=== PATIENT | male | born 1975 | race Caucasian/White ===

== ENCOUNTER 2025-01-02 10:38 | Emergency (ER) | payer OTHER, SELFPAY ==
[2025-01-02 10:52] VITALS: BP 144/81; PULSE 88; RESP 16; TEMP 36.2; O2SAT 100
--- NOTE | 2025-01-02 11:28 | ED.EAR ---
HPI - Ear Problem General Chief complaint: Ear Stated complaint: bilateral ear discomfort Time Seen by Provider: 01/02/25 11:05 Source: patient and RN notes reviewed Mode of arrival: ambulatory Limitations: no limitations History of Present Illness HPI Narrative: Mnaac-wdut-mkvc-old male presents Express Care complaining of bilateral ear pain and itchiness for 3 weeks. Patient reports noticing watery discharge. Patient denies any water in his ear putting his head under water, or any recent swimming. Patient says is ears feel very itchy patient's using Q-tips to help relieve symptoms. Patient says his ears feel more itchy than being painful and states the left is worse than right. Patient denies any fevers, upper respiratory symptoms, dizziness, or any other symptoms. Patient denies any significant past medical history. Related Data Home Medications ?Medication ?Instructions ?Recorded ?Confirmed ?Last Taken ?Type lisinopril 5 mg tablet mg 01/02/25 Unknown History Allergies Allergy/AdvReac Type Severity Reaction Status Date / Time No Known Allergies Allergy Verified 01/02/25 10:53 Review of Systems Review of Systems: CONSTITUTIONAL: Denies fever, chills, or sweats. EYES: Denies visual changes, blurry vision, redness, or discharge. ENT: Denies rhinorrhea, congestion, sore throat. Positive for otalgia, itchiness and dry ears. CARDIOVASCULAR: Denies chest pain, palpitations, dizziness, or edema. RESPIRATORY: Denies cough or dyspnea. GASTROINTESTINAL: Denies abdominal pain, nausea, vomiting, or diarrhea. GENITOURINARY: Denies dysuria or hematuria. SKIN: Denies rash or itching. MUSCULOSKELETAL: Denies back pain, joint pain, or myalgia. NEUROLOGIC: Denies headache, numbness, or weakness. PSYCHIATRIC: Denies anxiety or depression. All other systems reviewed are negative, except as documented in HPI. PMFSH Comments At the time of my signature, I reviewed and agree with the nursing past medical, surgical, social, and family history. There is no relevant family history pertinent to the patient complaint. Exam Narrative: GENERAL: This is a well-nourished, well-developed adult, in no apparent distress. They are non ill-appearing, nontoxic appearing. HEAD: normocephalic, atraumatic. EYES: Sclera clear/white. Conjunctiva normal. Vision is grossly intact. Extraocular movements intact. Pupils PERRLA. No nystagmus EARS: External ears normal, no tragal tenderness, auditory canals appear excoriated, dry, scaly. No spores or exudate present. No redness or swelling. TMs pearly lake with good cone of light, no erythema or swelling, no suppuration. Hearing grossly intact. NOSE: External nose normal with no obvious nasal discharge, nasal turbinates without redness, no rhinorrhea. THROAT: Mucous membranes moist, posterior pharynx clear, without erythema or swelling. Uvula midline. NECK: Neck supple, non-tender without lymphadenopathy, masses or thyromegaly. CARDIOVASCULAR: Regular rate and rhythm without murmurs, gallops, or rubs. RESPIRATORY: Clear to auscultation. Breath sounds equal bilaterally. No wheezes, rales, or rhonchi. SKIN: warm, Dry, intact with no suspicious lesions or rash, good texture and turgor. NEURO: awake, alert, and oriented to person, place and time. There were no obvious focal neurologic abnormalities. EXTREMITIES: No joint tenderness, effusion, or edema noted. BACK: Nontender without deformity. No CVA tenderness. Course Course Emergency Course: Portions of this record may have been created with voice recognition software Level of Care: Express Care Visit Vital Signs Vital signs: Vital Signs Temperature 97.1 F L 01/02/25 10:52 Pulse Rate 88 01/02/25 10:52 Respiratory Rate 16 01/02/25 10:52 Blood Pressure 144/81 H 01/02/25 10:52 Pulse Oximetry 100 01/02/25 10:52 Oxygen Delivery Room Air 01/02/25 10:52 Temperature 97.1 F L 01/02/25 10:52 Pulse Rate 88 01/02/25 10:52 Respiratory Rate 16 01/02/25 10:52 Blood Pressure 144/81 H 01/02/25 10:52 Pulse Oximetry 100 01/02/25 10:52 Oxygen Delivery Room Air 01/02/25 10:52 Reviewed Medical Decision Making MDM Narrative Medical decision making narrative: Ear canals appear dry and excoriated. Patient has no history of eczema. No obvious mold spores present and patient's auditory canals. No evidence of bacterial infection. External ears without lesions or rash. No other skin lesions or rash throughout the rest of the patient's body. Will cover for eczema and possible fungal infection given length of symptoms. Will treat with fluocinolone drops and acetic acid drops. Discussed physical exam findings. Advised supportive measures and signs/symptoms to go to the ER. Pt is appropriate for outpt treatment and f/u. Differential Diagnosis Differential Diagnosis: Otitis externa, otitis media, otitis mycosis, atopic dermatitis, seborrheic dermatitis Vital Signs Vital Signs: Vital Signs Temperature 97.1 F L 01/02/25 10:52 Pulse Rate 88 01/02/25 10:52 Respiratory Rate 16 01/02/25 10:52 Blood Pressure 144/81 H 01/02/25 10:52 Pulse Oximetry 100 01/02/25 10:52 Oxygen Delivery Room Air 01/02/25 10:52 Temperature 97.1 F L 01/02/25 10:52 Pulse Rate 88 01/02/25 10:52 Respiratory Rate 16 01/02/25 10:52 Blood Pressure 144/81 H 01/02/25 10:52 Pulse Oximetry 100 01/02/25 10:52 Oxygen Delivery Room Air 01/02/25 10:52 Critical Care Time Critical Care Time Critical Care Time: No Discharge Plan Discharge Clinical Impression: Dryness of both ear canals Patient Disposition: Home Condition: Stable Instructions: Fluocinolone Acetonide (Into the ear) Additional Instructions: Used ear drops as directed. Please follow-up with PCP in 3-5 days. Avoid using hydrogen peroxide or placing Q-tips in your ears. Avoid getting water in your ear. If you developed redness, swelling, discharge fevers or any other concerns please go to the ER. Patient Language: [place] Island[place] Prescriptions: New fluocinolone acetonide oil 0.01 % drops 5 drp EACH EAR BID 7 Days Qty: 20 0RF acetic acid 2 % solution 5 drp EACH EAR Q6H 5 Days Qty: 15 0RF No Action lisinopril 5 mg tablet Follow-up/Referrals: Priti,ÁLVARO Miller Jr. [Primary Care Provider] - Time of Disposition: 11:18
--- OUTSIDE RECORDS SUMMARY | 2025-01-02 11:35 | XMS_ITS | Clinical Summary ---
Author Organization [address] Address [address] [phone] Care Team Providers Care Visual Lead Name Role Phone ÁLVARO Marcos Jr., Paul Villegas Primary Care Provide r Allergies No known active allergies Medications lisinopriL (PRINIVIL,ZESTRI L) 5 mg tabletIndication s:Essential hypertension TAKE 1 TABLET (5 MG TOTAL) BY MOUTH DAILY. 100 tablet 5 Active sildenafiL (VIAGRA) 50 mg tabletIndication s:ED (erectile dysfunction) of non-organic origin TAKE 1 TABLET BY MOUTH EVERY DAY 8 tablet [address] (PROTONIX) 40 mg EC tabletIndication s:Gastroesophage al reflux disease without esophagitis TAKE 1 TABLET BY MOUTH EVERY DAY 90 tablet [address] (PROTONIX) 40 mg EC tabletIndication s:Gastroesophage al reflux disease without esophagitis Take 1 tablet (40 mg total) by mouth daily 90 tablet 1 4 025 Discontinued Hospital, Clinic, or Other Facility Administered Medication Ordered Dose Route Frequency Start Date End Date Status lidocaine (XYLOCAINE) 20 mg/mL (2 %) injection 10 mgIndications:Administratio n of Local Anesthesia 10 mg OTHER Once 12/09/2024 12/09/2024 End ed methylPREDNISolone acetate (DEPO-medrol) injection 80 mgIndications:Trigger thumb of right hand 80 mg OTHER Once 12/09/2024 12/09/2024 Ended Active Problems Problem Noted Date Diagnosed Date Trigger thumb of right hand 12/09/2024 Assessment & Plan (12/09/2024 9:55 AM CDT): Orders: lidocaine (XYLOCAINE) 20 mg/mL (2 %) injection 10 mg methylPREDNISolone acetate (DEPO-medrol) injection 80 mg History of colon polyps 12/14/2023 Gastroesophageal reflux disease 12/14/2023 Positive colorectal cancer screening using Colog uard test 01/20/2023 Essential hypertension 04/25/2021 Vitamin D deficiency 08/02/2017 Encounters Date Type Department Care Team Description 12/09/2024 9:15 AM CDT Office Visit [facility] Medicine and Primary Care at [address] [phone] Chan Castorena DO Trigger thumb of right hand (Primary Dx) 11/25/2024 1:05 PM CDT Ancillary Procedure [facility] at [address] [phone] Arthritis of carpometacarpal (CMC) joint of right thumb 11/25/2024 1:00 PM CDT Office Visit [facility] Primary Care at [address] [phone] Chan Castorena DO Arthritis of carpometacarpal (CMC) joint of right thumb (Primary Dx); Trigger thumb of right hand 11/08/2024 8:30 AM CDT Office Visit [facility] and Primary Care at [address] [phone] Chan Castorena DO Arthritis of carpometacarpal (CMC) joint of right thumb (Primary Dx); Tendinitis of left triceps 10/11/2024 3:30 PM CDT Office Visit [facility] at [address] [phone] Saumya Hooper NP Left elbow pain (Primary Dx) 10/11/2024 3:20 PM CDT Ancillary Procedure [facility] Imaging at [address] [phone] Left elbow pain 10/11/2024 Results Follow-Up [facility] at [address] [phone] Saumya Hooper NP XR Elbow Left 3+ Vw from Last 3 Months Immunizations Immunization Administration Dates Next Due COVID-19 MRNA (MODERNA) .5 M L (50 MCG) VACCINE (12 YEARS AND UP) 04/20/2023 Influenza, Quadrivalent, Eloise l Culture-based MDCK, Preservative Free, Antibiotic Free, Intramuscular 05/03/2022 Influenza, Quadrivalent, Spl it, Preservative Free, Intramuscular 04/26/2021,04/27/2020,05/21/2019 Influenza, Trivalent, Cell C ulture-based MDCK, Preservative Free, Antibiotic Free, Intramuscular 04/18/2024 Influenza, Unspecified 05/10/2023 Moderna SARS-CoV-2 Monovalen t Vaccination (12+ YRS) 06/07/2021 Surgical History Surgery Date Site/Laterality Comments FOOT SURGERY 07/24/1978 - 07/23/1979 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 COLONOSCOPY UPPER GASTROINTESTINAL ENDOSCOPY Medical History Medical History Date Comments Hypertension GERD (gastroesophageal reflux disease) Colon polyp Family History Medical History Relation Name Comments No Known Problems Brother Heart disease Father Hypertension Father Alzheimer's disease Maternal Grandfather No Known Problems Mother No Known Problems Sister Relation Name Status Comments Brother Alive Father Alive Maternal Grandfather Maternal Grandmother Mother Alive Paternal Grandfather Paternal Grandmother Sister Alive Social History Tobacco Use Types Packs/Day Years Used Date Smoking Tobacco: Never Smokeless Tobacco: Never Tobacco Cessation:Counseling Given: Not Answered AUDIT-C Answer Date Recorded Q1: How often do you have a drink containing alc ohol? 2-3 times a week 06/14/2024 Q2: How many drinks containi ng alcohol do you have on a typical day when you are drinking? 1 or 2 06/14/2024 Q3: How often do you have si x or more drinks on one occasion? Weekly 06/14/2024 PHQ-2 Answer Date Recorded PHQ-2 Total Score (If total score is 3 or more points, staff should administer the PHQ-9) 0 06/14/2024 Personal Safety Answer Date Recorded Have you ever been in or are you currently in a harmful physical or emotional relationship or is someone making you feel afraid or unsafe? 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 TECH Gender Identity Not on file Sexual Orientation Not on file Obstetrics History Last Filed Vital Signs Vital Sign Reading Time Taken Comments Blood Pressure 145/86 12/09/2024 9:04 AM CDT Pulse 76 12/09/2024 9:04 AM CDT Temperature 36.9 C (98.4 F) 10/11/2024 3:10 PM CDT Respiratory Rate 18 12/09/2024 9:04 AM CDT Oxygen Saturation 99% 10/11/2024 3:10 PM CDT Inhaled Oxygen Concentration - - Weight 78.5 kg (173 lb) 12/09/2024 9:04 AM CDT Height 167.6 cm (5' 6) 12/09/2024 9:04 AM CDT Body Mass Index 27.92 12/09/2024 9:04 AM CDT Plan of Treatment Health Maintenance Due Date Last Done Comments DTaP/Tdap/Td Vaccine (1 - Tdap) 12/22/1986 Hepatitis B Screening 12/22/1993 Colon Cancer Screening-Colonoscopy 02/28/2025 02/29/2024, 03/13/2023 Depression Screening 06/14/2025 06/14/2024, 05/15/2023, 05/13/2022, Additional history exists Regular Well Visit/Exam 18-64 06/14/2025 06/14/2024, 05/15/2023, 05/15/2023, Additional history exists Covid-19 Vaccine Completed 04/18/2024, , 05/11/2022, Additional history exists Influenza Vaccine Completed 04/18/2024, , 05/03/2022, Additional history exists Hepatitis C Screening Completed 06/17/2024 Pneumococcal vaccine <65 Aged Out No longer eligible based on patient's age to complete this topic Procedures Procedure Name Priority Date/Time Associated Diagnosis Comments XR HAND RIGHT 3 OR MORE VIEWS Routine 11/25/2024 1:01 PM CDT Arthritis of carpometacarpal (CMC) joint of right thumb XR ELBOW LEFT 3 OR MORE VIEWS Schedule MILE, Read MILE (Appt Today, Awaiting Results) 10/11/2024 3:19 PM CDT Left elbow pain HEPATITIS C ANTIBODY Routine 06/17/2024 8:33 AM PATIENT SAFETY TECH Annual physical exam Encounter for hepatitis C screening test for low risk patient COLONOSCOPY 02/29/2024 7:24 AM CDT from Last 3 Months or Most Recently Relevant to Health Maintenance Results * XR Hand Right 3 or More Views (11/25/2024 1:01 PM CDT) Anatomical Region Laterality Modality Upper Extremities, Hand Right Digital Radiography 11/25/2024 9:46 PM CDT Narrative 11/25/2024 9:50 PM CDT EXAM DESCRIPTION: XR HAND RIGHT 3 OR MORE VIEWS REASON FOR STUDY: Right Hand Thumb Pain Pt complains of CMC pain for many months. No known injury or prior surgery. Prior thumb fracture many years ago TECHNIQUE: 3 radiographic view(s) of the right hand . COMPARISON: None FINDINGS: BONES/JOINTS: There is no acute fracture, malalignment or osseous abnormality. Moderate degenerative change of the 1st carpometacarpal interface. SOFT TISSUES: Within normal limits. IMPRESSION: Moderate degenerative change of the 1st carpometacarpal interface. THIS IS AN ELECTRONICALLY VERIFIED FINAL REPORT 11/25/2024 9:50 PM - Electronically signed by Otis Ness M.D. RW T: Report ID: [id number] Reading Location: [id number] Procedure Note Otis Ness MD - 11/25/2024 EXAM DESCRIPTION: XR HAND RIGHT 3 OR MORE VIEWS REASON FOR STUDY: Right Hand Thumb Pain Pt complains of CMC pain for many months. No known injury or priorsurgery. Prior thumb fracture many years ago TECHNIQUE: 3 radiographic view(s) of the right hand . COMPARISON: None FINDINGS: BONES/JOINTS: There is no acute fracture, malalignment orosseous abnormality. Moderate degenerative change of the 1st carpometacarpalinterface. SOFT TISSUES: Within normal limits. IMPRESSION: Moderate degenerative change of the 1st carpometacarpal interface. THIS IS AN ELECTRONICALLY VERIFIED FINAL REPORT 11/25/2024 9:50 PM - Electronically signed by Otis ZHONG T: Report ID: [id number] Reading Location: [id number] Chan Miller Raffaele DO IMG XR PROCEDURES Venessa l Result * XR Elbow Left 3+ Vw (10/11/2024 3:19 PM CDT) Anatomical Region Laterality Modality Upper Extremities, Elbow Left Digital Radiography 10/11/2024 4:58 PM CDT Narrative 10/11/2024 5:05 PM CDT EXAM DESCRIPTION: XR ELBOW LEFT 3 OR MORE VIEWS REASON FOR STUDY: pain Posterior elbow pain after popping while working out yesterday. No prior surgery to the elbow. TECHNIQUE: There are 3 radiographic view(s) of the left elbow . COMPARISON: No prior FINDINGS: Normal mineralization. No fracture or dislocation. Joint spaces are intact. Well corticated ossifications are seen along the medial malleolus indicative of heterotopic ossification. These are well corticated with no suggestion of fracture. Mild osteoarthritis proximal radioulnar joint. Enthesophyte formation and heterotopic ossification distal triceps. IMPRESSION: No acute osseous abnormality. THIS IS AN ELECTRONICALLY VERIFIED FINAL REPORT 10/11/2024 5:05 PM - Electronically signed by Chan LIU T: Report ID: [id number] Reading Location: [id number] Procedure Note Chan Bella MD - 10/11/2024 EXAM DESCRIPTION: XR ELBOW LEFT 3 OR MORE VIEWS REASON FOR STUDY: pain Posterior elbow pain after popping while working out yesterday. No prior surgery to the elbow. TECHNIQUE: There are 3 radiographic view(s) of the left elbow . COMPARISON: No prior FINDINGS: Normal mineralization. No fracture or dislocation. Jointspaces are intact. Well corticated ossifications are seen along the medialmalleolus indicative of heterotopic ossification. These are well corticated with no suggestion of fracture. Mild osteoarthritis proximal radioulnar joint. Enthesophyte formation and heterotopic ossification distal triceps. IMPRESSION: No acute osseous abnormality. THIS IS AN ELECTRONICALLY VERIFIED FINAL REPORT 10/11/2024 5:05 PM - Electronically signed by Chan Bella M.D. MJ T: Report ID: [id number] Reading Location: [place] [id number] Saumya Hooper FIELD SERVICE POULTRY TECHNICIAN IMG XR PROCEDURES Final Result * Hepatitis C antibody Blood (06/17/2024 8:33 AM PATIENT SAFETY TECH) Hep C Ab Nonreactive Nonreactive Comment: Antibodies to HCV not detected. Does NOT exclude the possibility of recent exposure to HCV. Current interpretive data was last revised on 22 Interpretive Data Nonreactive: Antibodies to HCV not detected. Does NOT exclude the possibility of recent exposure to HCV. Equivocal: Equivocal for HCV antibodies. Supplemental molecular testing will be automatically performed to determine infection status in accordance with current CDC screening recommendations. Reactive: Positive for HCV antibodies. This may represent current or past HCV infection. Supplemental molecular testing will be automatically performed to determine current infection status in accordance with current CDC screening recommendations. Interpretive data was last revised on 2019. Blood 06/17/2024 8:33 AM PATIENT SAFETY TECH 06/17/2024 2:27 PM PATIENT SAFETY TECH ÁLVARO Atkinson Jr. LAB MICROBIOLOGY - Melinta NERAL ORDERABLES Final Result [id number] [facility] Department of [employer] [address] * Colonoscopy (02/29/2024 7:24 AM CDT) Anatomical Region Laterality Modality Other Narrative Procedure Note Paul Wilson DO - 02/29/2024 7:24 AM CDT [facility] Patient Name: Artemio Rodriguez Procedure Date: 02/29/2024 7:24 AM Date of : 1975 Admit Type: Outpatient Age: 48 Gender: Male Attending MD: Paul Wilson D.O. Room: [facility] ENDOSCOPY ROOM 05 Note Status: Finalized Procedure: Colonoscopy Indications: Personal history of colonic polyps Referring MD: Paul Wilson D.O. Providers: Paul Wilson D.O. Medicines: See the Anesthesia note for documentation of the administered medications Complications: No immediate complications. Estimated Blood Loss: Estimated blood loss was minimal. Procedure: The benefits, risks and alternatives of theprocedure and sedation were discussed and informed consentwas obtained. All questions were answered. Please referto the signed informed consent document in the medical record. The scope was passed under direct vision.The PCF-H180AL colonoscope was introduced through theanus and advanced to the cecum, identified byappendiceal orifice and ileocecal valve. The colonoscopy was performed without difficulty. The patient tolerated the procedure well. The quality of the bowel preparation was good. Prep was administered in asplit dose. Findings: A polyp was found in the ascending colon. The polyp was sessile. The polyp was removed with a cold snare. Resection and retrieval were complete. Impression: - One polyp in the ascending colon, removed with a cold snare. Resected and retrieved. Recommendation: - Patient has a contact number available for emergencies. The signs and symptoms of potential delayed complications were discussed with thepatient. Return to normal activities tomorrow. Written discharge instructions were provided to thepatient. - Resume previous diet. - Continue present medications. - Await pathology results. - Repeat colonoscopy in 3 years for surveillancebased on pathology results. Paul Wilson D.O. 02/29/2024 8:02:03 AM Number of Addenda: 0 Note Initiated On: 02/29/2024 7:24 AM Recognized by the [place] [employer] for promoting quality in endoscopy Paul Wilson DO ENDOSCOPY PROCEDURES Fin al Result from Last 3 Months or Most Recently Relevant to Health Maintenance Insurance Mama [facility] [employer] PPO [facility] CLAIMS [employer] PPO [facility] CLAIMS Care Teams Visual Lead Relationship Specialty Start Date End Date Paul Marcos Jr., PA [address] [place], [place] [id number] PCP - General Family Medicine 02/04/19
--- OUTSIDE RECORDS SUMMARY | 2025-01-02 11:35 | XMS_ITS | Referral Summary ---
Author Organization [address] Address [address] [place] [phone] Care Team Providers Care Retail Support Manager Name Role Phone ÁLVARO Marcos Jr., Paul Villegas Primary Care Provide r Encounters Date Type Department Care Team Description 12/09/2024 9:15 AM CDT Office Visit [facility] at [address] [phone] Chan Castorena DO Trigger thumb of right hand (Primary Dx) 11/25/2024 1:05 PM CDT Ancillary Procedure [facility] at [address] [phone] Arthritis of carpometacarpal (CMC) joint of right thumb 11/25/2024 1:00 PM CDT Office Visit [facility] at [address] [phone] Chan Castorena DO Arthritis of carpometacarpal (CMC) joint of right thumb (Primary Dx); Trigger thumb of right hand 11/08/2024 8:30 AM CDT Office Visit [facility] at [address] [phone] Chan Castorena DO Arthritis of carpometacarpal (CMC) joint of right thumb (Primary Dx); Tendinitis of left triceps 10/11/2024 Results Follow-Up [facility] at [address] [phone] Saumya Hooper NP XR Elbow Left 3+ Vw 10/11/2024 3:20 PM CDT Ancillary Procedure [facility] Imaging at [address] [phone] Left elbow pain 10/11/2024 3:30 PM CDT Office Visit [facility] at [address] [phone] Saumya Hooper NP Left elbow pain (Primary Dx) from Last 3 Months Allergies No known active allergies Medications lisinopriL [...] Essential hypertension 04/25/2021 Vitamin D deficiency 08/02/2017 Immunizations Immunization Administration Dates Next Due COVID-19 MRNA (MODERNA) .5 M L (50 MCG) VACCINE (12 YEARS AND UP) 04/20/2023 Influenza, Quadrivalent, Eloise l Culture-based MDCK, Preservative Free, Antibiotic Free, Intramuscular 05/03/2022 Influenza, Quadrivalent, Spl it, Preservative Free, Intramuscular 04/26/2021,04/27/2020,05/21/2019 Influenza, Trivalent, Cell C ulture-based MDCK, Preservative Free, Antibiotic Free, Intramuscular 04/18/2024 Influenza, Unspecified 05/10/2023 Moderna SARS-CoV-2 Monovalen t Vaccination (12+ YRS) 06/07/2021 Social History Tobacco Use Types Packs/Day Years [...] on file 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.] Otis Ness M.D. RW T: Report ID: [id number] Reading Location: [id number] Procedure Note Otis Ness MD - 11/25/2024 [...] signed by Otis ZHONG T: Report ID: [id number] Reading Location: [id number] Chan Castorena DO IMG XR PROCEDURES Venessa l Result [...] signed by Chan LIU T: Report ID: [id number] Reading Location: [place] [address] Procedure Note Chan Bella MD - 10/11/2024 [...] signed by Chan LIU T: Report ID: [id number] Reading Location: [place] [address] Saumya Hooper LOCKSMITH APPRENTICE IMG XR PROCEDURES Final Result * Hepatitis C antibody Blood (06/17/2024 8:33 AM DIGITAL SALES ASSISTANT) Hep C Ab Nonreactive Nonreactive Comment: Antibodies [...] revised on 2019. Blood 06/17/2024 8:33 AM DIGITAL SALES ASSISTANT 06/17/2024 2:27 PM DIGITAL SALES ASSISTANT us Paul Marcos Jr., ÁLVARO LAB MICROBIOLOGY - NERAL ORDERABLES Final Result [facility] [address] [facility] Department [place] [address] * Colonoscopy (02/29/2024 7:24 AM CDT) Anatomical Region Laterality Modality Other Narrative Procedure Note Paul Wilson DO - 02/29/2024 7:24 AM CDT [facility] Patient Name: Artemio Rodriguez Procedure Date: 02/29/2024 7:24 AM Date of : 1975 Admit Type: Outpatient Age: 48 Gender: Male Attending MD: Paul Wilson D.O. Room: [facility] ENDOSCOPY ROOM 05 Note Status: Finalized Procedure: [...] On: 02/29/2024 7:24 AM Recognized by the [employer] for promoting quality in endoscopy Paul Wilson DO ENDOSCOPY PROCEDURES Fin al Result from Last 3 Months or Most Recently Relevant to Health Maintenance Insurance [facility] PPO [facility] PPO [facility] CLAIMS Care Teams Retail Support Manager Relationship Specialty Start Date End Date Paul Marcos Jr., PA [address] [place] [id number] PCP - General Family Medicine 02/04/19
--- OUTSIDE RECORDS SUMMARY | 2025-01-02 11:36 | XMS_ITS | Clinical Summary ---
Author Organization [facility] Address [address] [place] [address] Care Team Providers Care Advertising Director Name Role Phone Unavailable Primary Care Provider Unavailabl e Source Comments [facility],non-owned Affiliates and Associated Physician Practices is amultiple site organization consisting of ambulatory clinics and hospital sitesin [place], [place], [place] and [place]. This disclosure is being madepursuant to the Care Everywhere program and may not contain all information available regarding this patient. Last updated 18.[facility] [employer] Allergies No known active allergies Immunizations Immunization Administration Dates Next Due INFLUENZA VACCINE, QUADR. (F LUZONE; FLULAVAL; FLUARIX; AFLURIA QUADRIVALENT; 6MO+), 0.5 ML (IIV4) 05/21/2019 Social History Tobacco Use Types Packs/Day Years Used Date Smoking Tobacco: Never Assessed Sex and Gender Information Value Date Recorded Sex Assigned at Not on file Legal Sex Male 9:29 AM CDT Gender Identity Not on file Sexual Orientation Not on file Plan of Treatment Health Maintenance Due Date Last Done Comments COLOGUARD (AGES 45-75) - COLON CA SCREENING 1975 COLON MONITORING 1975 COLONOSCOPY - COLON CA SCREENING 1975 CT COLONOGRAPHY - COLON CA SCREENING 1975 Colorectal Cancer Screening 1975 FIT - COLON CA SCREENING 1975 FLEX SIG - COLON CA SCREENING 1975 LIPID TESTING 1975 HIV SCREENING 12/22/1990 HEPATITIS C SCREENING 12/18/1993 DTAP/TDAP/TD VACCINES (1 - Tdap) 12/22/1994 HEPATITIS B VACCINE (1 of 3 - 19+ 3-dose series) 12/22/1994 COVID-19 VACCINE ( - 2023- season) 2024 DEPRESSION SCREENING 07/24/2024 INFLUENZA VACCINE (Season Ended) 2025 05/21/2019, 07/06/2018, 04/25/2016, Additional history exists ZOSTER VACCINE (1 of 2) 12/22/2025 HIB VACCINE Aged Out No longer eligi ble based on patient's age to complete this topic HPV VACCINE Aged Out No longer eligi ble based on patient's age to complete this topic MENINGOCOCCAL (Group B) VACCINE SHARED DECISION-MAKING Aged Out No longer eligible based on patient's age to complete this topic MENINGOCOCCAL GROUPS A/C/Y/W VACCINE Aged Out No longer eligible based on patient's age to complete this topic Insurance [employer]
--- OUTSIDE RECORDS SUMMARY | 2025-01-02 11:36 | XMS_ITS | Continuity of Care Document ---
Author Name [facility] Organization [facility] Care Team Providers Care Hatch Supervisor Name Role Phone [facility] Unavailable Unavailable Problems Combined list of problems from Department of Defense and Veterans Affairs facilities. It does not include entries that were removed or entered in error. Problem Status Onset Date Problem Type Date of Resolution Comments Source EXAM, FORMAL OCCUPATIONAL HEALTH PROGRAM INCLUDING HEARING CONSERVATION PROGRAM, PERIODIC FOR CONTINUED SURVEILLANCE FOR OCCUPATIONAL WORKPLACE EXPOSURE Active 4 Diagnosis [facility] EXAM, OCCUPATIONAL, AVIATION, LONG Active 4 Diagnosis 00[facility] Essential (primary) hypertension Active 4 Diagnosis 00[facility] Essential (primary) hypertension Active Condition DoD Need For Prophylactic Measure Inactive Condition [facility] Preventive Medicine Counseling About Travel Active Condition DoD WARTS VERRUCA Active Condition A: [place] ctive skin shaven Bx, R mid-lower thigh. Tolerated well without complication. 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 Medication Details Route Status Patient Instructions Prescription Expires Prescription Number Last Dispense Date Ordering Provider Order Date Order Qty Source lisinopril 5 mg oral tablet 90 EA, TAKE 1 TABLET (5 MG TOTAL) BY MOUTH DAILY., 0 total refill(s ), Soft Stop Ordered 08/11/ 2023 0055C-3 [facility] Allergies, Adverse Reactions, Alerts Combined list of allergies from Department of Defense and Veterans Affairs facilities. It does not include entries that were removed or entered in error. Substance Category Reaction Severity Reaction type Status Date Reported Comments Source No Known Allergies Drug allergy (disorder) active 01/13/2016 Gian Bonilla [place], [place] Immunizations Combined list of available immunizations from the Department of Defense and Veterans Affairs facilities. Immunization Series Date Given Administered By Site Reaction Lot Number CVX Code Drug Telegraph Operator Status Comments Source typhoid vaccine, inactivated 2022 ETHANJPOCKLIN GTON Shoul chong, left (delt oid) [id number] sanofi pasteur complet ed typhoid vaccine, inactivat ed 06/06/23 Given -3 75th AAKASH Alvarado influenza virus vaccine, inactivated 2022 SAMUELMPLASTE R Shoul chong, left (delt oid) [id number] 150 [employer], [employer] complet ed influenza virus vaccine, inactivat ed 05/10/23 Given -[address] [place], [place] [address]KAYLEN Alvarado tetanus-dipht h toxoids (Td) adult/adol 2021 [id number] 09 sanofi pasteur complet ed tetanus-d iphth toxoids (Td) adult/ado l 04/14/22 Given Ambulat ory Pharmac y meningococcal oligosacchari de (MCV4O) 2021 [id number] 136 GlaxoSmithKli ne complet ed meningoco ccal oligosacc haride (MCV4O) 12/31/21 Given Ambulat ory Pharmac y COVID-19, mRNA, LNP-S, PF, 100 mcg or 50 mcg dose 2020 DARIA Moderna US, Inc. (MOD) Not Given COVID-19, mRNA, LNP-S, PF, 100 mcg or 50 mcg dose DoD COVID Vaccine Moderna 2020 ANTONIO GONZALES 207 complet ed Result Comment: Unit: Unknown Manufactu rer: Moderna US, Inc. (MOD) -3 [facility] AAKASH Alvarado influenza, seasonal, injectable 2020 TRANSCR IBED 141 complet ed influenza , seasonal, injectabl e 04/26/21 Given Ambulat ory Pharmac y typhoid Vi capsular polysaccharid e vac 2020 [id number] 101 sanofi pasteur complet ed typhoid Vi capsular polysacch aride vac 04/21/21 Given Ambulat ory Pharmac y SARS-CoV-2 (COVID-19) Ad26 vaccine, rec 2020 [id number] 212 complet ed SARS-CoV- 2 (COVID-19 ) Ad26 vaccine, rec 09/25/20 Given Ambulat ory Pharmac y SARS-COV-2 (COVID-19) vaccine, vector non-replicati ng, recombinant spike protein-Ad26, preservative free, 0.5 mL 1 2020 [id number] 212 [facility] (JSN) comple t ed SARS-COV- 2 (COVID-19 ) vaccine, vector non-repli cating, recombina nt spike protein-A d26, preservat alisson free, 0.5 mL DoD influenza, injectable, quadrivalent- pf 2019 150 complet ed influenza , injectabl e, quadrival ent-pf 04/27/20 Given Ambulat ory Pharmac y influenza, injectable, quadrivalent, preservative free 2019 ALUL, () Not Given influenza , injectabl e, quadrival ent, preservat alisson free DoD Influenza, injectable, quadrivalent, preservative free 0 2019 150 (MVX) complet ed Influenza , injectabl e, quadrival ent, preservat alisson free DoD influenza, seasonal, injectable-pf 2018 TRANSCR IBED 140 complet ed influenza , seasonal, injectabl e-pf 05/21/19 Given Ambulat ory Pharmac y Influenza, seasonal, injectable, preservative free 1 2018 140 Transcribed (TRS) complet ed Influenza , seasonal, injectabl e, preservat alisson free DoD typhoid Vi capsular polysaccharid e vac 2018 [id number] 101 sanofi pasteur complet ed typhoid Vi capsular polysacch aride vac 03/14/19 Given Ambulat ory Pharmac y typhoid Vi capsular polysaccharid e vaccine 10 2018 [id number] 101 Sanofi Pasteur (PMC) complet ed typhoid Vi capsular polysacch aride vaccine DoD influenza, injectable, quadrivalent- pf 2017 [id number] 150 [facility] ne complet ed influenza , injectabl e, quadrival ent-pf 07/06/18 Given Ambulat ory Pharmac y Influenza, injectable, quadrivalent, preservative free 20 2017 [id number] 150 [facility] (B) complet ed Influenza , injectabl e, quadrival ent, preservat alisson free DoD influenza virus vaccine, inactivated 2016 [id number] 88 Seqirus complet ed influenza virus vaccine, inactivat ed 05/28/17 Given Ambulat ory Pharmac y Influenza, injectable, Madin [place] Canine Kidney, quadrivalent with preservative 1 2016 [id number] 186 Seqirus (SEQ) comple t ed Influenza , injectabl e, Madin Nora Canine Kidney, quadrival ent with preservat alisson DoD typhoid Vi capsular polysaccharid e vac 2016 L1570 1 101 sanofi pasteur complet ed typhoid Vi capsular polysacch aride vac 11/26/16 Given Ambulat ory Pharmac y typhoid Vi capsular polysaccharid e vaccine 9 2016 L1570 1 101 Sanofi Pasteur (PMC) complet ed typhoid Vi capsular polysacch aride vaccine DoD meningococcal A,C,Y,W-135 (MCV4P) 2016 [id number] 114 Novartis Pharmaceutica ls complet ed meningoco ccal A,C,Y,W-1 35 (MCV4P) 11/02/16 Given Ambulat ory Pharmac y meningococcal polysaccharid e (groups A, C, Y and W-135) diphtheria toxoid conjugate vaccine (MCV4P) 1 2016 [id number] 114 Novartis Pharmaceutica l Joseph. (NOV) complet ed meningoco ccal polysacch aride (groups A, C, Y and W-135) diphtheri a toxoid conjugate vaccine (MCV4P) DoD influenza, seasonal, injectable-pf 2015 [id number] 140 Seqirus complet ed influenza , seasonal, injectabl e-pf 04/25/16 Given Ambulat ory Pharmac y Influenza, seasonal, injectable, preservative free 0 2015 [id number] 140 Seqirus (SEQ) comple t ed Influenza , seasonal, injectabl e, preservat alisson free DoD influenza, live, intranasal,qu adrivalent 2014 [id number] 149 [employer] Inc comple t ed influenza , live, intranasa l,quadriv alent 04/30/15 Given Ambulat ory Pharmac y influenza, live, intranasal, quadrivalent 17 2014 [id number] 149 MedImmune, Inc. (MED) complet ed influenza , live, intranasa l, quadrival ent DoD typhoid Vi capsular polysaccharid e vac 2014 K1183 101 sanofi pasteur complet ed typhoid Vi capsular polysacch aride vac 11/06/14 Given Ambulat ory Pharmac y typhoid Vi capsular polysaccharid e vaccine 1 2014 K1183 101 Sanofi Pasteur ([facility]) complet ed typhoid Vi capsular polysacch aride vaccine DoD hepatitis B adult vaccine 2014 [id number] 43 GlaxoSmithKli ne complet ed hepatitis B adult vaccine 10/06/14 Given Ambulat ory Pharmac y hepatitis B vaccine, adult dosage 3 2014 [id number] 43 SmithKline (SKB) complet ed hepatitis B vaccine, adult dosage DoD hepatitis B adult vaccine 2013 [id number] 43 GlaxoSmithKli ne complet ed hepatitis B adult vaccine 04/17/14 Given Ambulat ory Pharmac y influenza, live, intranasal,qu adrivalent 2013 [id number] 149 Medimmune Inc comple t ed influenza , live, intranasa l,quadriv alent 04/17/14 Given Ambulat ory Pharmac y hepatitis B vaccine, adult dosage 2 2013 [id number] 43 SmithKline (SKB) complet ed hepatitis B vaccine, adult dosage DoD influenza, live, intranasal, quadrivalent 16 2013 [id number] 149 MedImmune, Inc. (MED) complet ed influenza , live, intranasa l, quadrival ent DoD hepatitis B adult vaccine 2013 [id number] 43 GlaxoSmithKli ne complet ed hepatitis B adult vaccine 01/11/14 Given Ambulat ory Pharmac y hepatitis B vaccine, adult dosage 1 2013 [id number] 43 SmithKline (SKB) complet ed hepatitis B vaccine, adult dosage DoD Influenza, injectable, MDCK-pf 2012 [id number] 153 Novartis Ponfactica complet ed Influenza , injectabl e, MDCK-pf 06/04/13 Given Ambulat ory Pharmac y measles/mumps /rubella virus vaccine 2012 [id number] 03 Merck & Company Inc complet ed measles/m umps/rube lla virus vaccine 06/04/13 Given Ambulat ory Pharmac y measles, mumps and rubella virus vaccine 1 2012 [id number] 03 Merck (MSD) complet ed measles, mumps and rubella virus vaccine DoD Influenza, injectable, Madin Nora Canine Kidney, preservative free 0 2012 [id number] 153 Novartis Ponfactica [place]illaway Joseph. (NOV) complet ed Influenza , injectabl e, Madin Nora Canine Kidney, preservat alisson free DoD typhoid Vi capsular polysaccharid e vac 2012 G1542 101 sanofi pasteur complet ed typhoid Vi capsular polysacch aride vac 10/05/12 Given Ambulat ory Pharmac y typhoid Vi capsular polysaccharid e vaccine 1 2012 G1542 101 Sanofi Pasteur (PMC) complet ed typhoid Vi capsular polysacch aride vaccine DoD influenza, seasonal, injectable 2011 [id number] 141 sanofi pasteur complet ed influenza , seasonal, injectabl e 06/30/12 Given Ambulat ory Pharmac y Influenza, seasonal, injectable 1 2011 [id number] 141 Sanofi Pasteur (PMC) complet ed Influenza , seasonal, injectabl e DoD tetanus, diphtheria, acellular pertu is 2011 [id number] 115 [facility] complet ed tetanus, diphtheri a, acellular pertussis 03/10/12 Given Ambulat ory Pharmac y tetanus toxoid, reduced diphtheria toxoid, and acellular pertu is vaccine, adsorbed 0 2011 [id number] 115 VARSITY MEDIA GROUPine (SKB) complet ed tetanus toxoid, reduced diphtheri a toxoid, and acellular pertussis vaccine, adsorbed DoD meningococcal A,C,Y,W-135 (MCV4P) 2011 [id number] 114 sanofi pasteur complet ed meningoco ccal A,C,Y,W-1 35 (MCV4P) 10/05/11 Given Ambulat ory Pharmac y meningococcal polysaccharid e (groups A, C, Y and W-135) diphtheria toxoid conjugate vaccine (MCV4P) 1 2011 [id number] 114 Sanofi Pasteur (PMC) complet ed meningoco ccal polysacch aride (groups A, C, Y and W-135) diphtheri a toxoid conjugate vaccine (MCV4P) DoD influenza, seasonal, injectable 2010 [id number] 141 sanofi pasteur complet ed influenza , seasonal, injectabl e 05/07/11 Given Ambulat ory Pharmac y Influenza, seasonal, injectable 0 2010 [id number] 141 Sanofi Pasteur (PMC) complet ed Influenza , seasonal, injectabl e DoD yellow fever vaccine 2010 [id number] 37 sanofi pasteur complet ed yellow fever vaccine 09/04/10 Given Ambulat ory Pharmac y typhoid Vi capsular polysaccharid e vac 2010 D0412 101 sanofi pasteur complet ed typhoid Vi capsular polysacch aride vac 09/04/10 Given Ambulat ory Pharmac y yellow fever vaccine 1 2010 [id number] 37 Sanofi Pasteur (PMC) complet ed yellow fever vaccine DoD typhoid Vi capsular polysaccharid e vaccine 1 2010 D0412 101 Sanofi Pasteur ([facility]) complet ed typhoid Vi capsular polysacch aride vaccine DoD influenza virus vaccine,split 2010 [id number] 15 sanofi pasteur complet ed influenza virus vaccine,s plit 08/05/10 Given Ambulat ory Pharmac y influenza virus vaccine, split virus (incl. purified surface antigen)-reti red CODE 1 2010 [id number] 15 Sanofi Pasteur (PMC) complet ed influenza virus vaccine, split virus (incl. purified surface antigen)- retired CODE DoD Novel influenza-H1N 1-09, injectable 2009 [id number] 1 127 Novartis Pharmaceutica ls complet ed Novel influenza -F0A8-06, injectabl e 10/06/09 Given Ambulat ory Pharmac y Novel influenza-H1N 1-09, injectable 1 2009 [id number] 1 127 Novartis Pharmaceutica l Joseph. (NOV) complet ed Novel influenza -L9R0-21, injectabl e DoD influenza virus vaccine,split 2008 [id number] 15 sanofi pasteur complet ed influenza virus vaccine,s plit 07/04/09 Given Ambulat ory Pharmac y influenza virus vaccine, split virus (incl. purified surface antigen)-reti red CODE 1 2008 [id number] 15 Sanofi Pasteur (PMC) complet ed influenza virus vaccine, split virus (incl. purified surface antigen)- retired CODE DoD typhoid Vi capsular polysaccharid e vac 2008 N4303-7 101 sanofi pasteur complet ed typhoid Vi capsular polysacch aride vac 10/03/08 Given Ambulat ory Pharmac y typhoid Vi capsular polysaccharid e vaccine 1 2008 [id number] 101 Sanofi Pasteur (PMC) complet ed typhoid Vi capsular polysacch aride vaccine DoD influenza virus vaccine,split 2007 [id number] 15 sanofi pasteur complet ed influenza virus vaccine,s plit 07/05/08 Given Ambulat ory Pharmac y influenza virus vaccine, split virus (incl. purified surface antigen)-reti red CODE 1 2007 [id number] 15 Sanofi Pasteur (PMC) complet ed influenza virus vaccine, split virus (incl. purified surface antigen)- retired CODE DoD influenza virus vaccine,split 2006 [id number] 15 [employer] ne complet ed influenza virus vaccine,s plit 05/26/07 Given Ambulat ory Pharmac y influenza virus vaccine, split virus (incl. purified surface antigen)-reti red CODE 1 2006 [id number] 15 B[employer] (SKB) complet ed influenza virus vaccine, split virus (incl. purified surface antigen)- retired CODE DoD typhoid vaccine, inactivated 2006 [id number] 101 sanofi pasteur complet ed typhoid vaccine, inactivat ed 09/23/06 Given Ambulat ory Pharmac y meningococcal A,C,Y,W-135 (MCV4P) 2006 [id number] 114 sanofi pasteur complet ed meningoco ccal A,C,Y,W-1 35 (MCV4P) 09/23/06 Given Ambulat ory Pharmac y typhoid vaccine, parenteral, other than acetone-kille d, dried 1 2006 [id number] 41 Sanofi Pasteur (PMC) complet ed typhoid vaccine, parentera l, other than acetone-k illed, dried DoD meningococcal polysaccharid e (groups A, C, Y and W-135) diphtheria toxoid conjugate vaccine (MCV4P) 1 2006 [id number] 114 Sanofi Pasteur (PMC) complet ed meningoco ccal polysacch aride (groups A, C, Y and W-135) diphtheri a toxoid conjugate vaccine (MCV4P) [facility] influenza virus vaccine, live 2005 [id number] 111 [employer] Inc comple t ed influenza virus vaccine, live 05/24/06 Given Ambulat ory Pharmac y varicella virus vaccine 0 2005 21 () Not Given varicella virus vaccine [facility] influenza virus vaccine, live, attenuated, for intranasal use 1 2005 [id number] 111 [employer] (MED) complet ed influenza virus vaccine, live, attenuate d, for intranasa l use [facility] influenza virus vaccine,split 2004 [id number] 15 sanofi pasteur complet ed influenza virus vaccine,s plit 04/23/05 Given Ambulat ory Pharmac y influenza virus vaccine, split virus (incl. purified surface antigen)-reti red CODE 1 2004 [id number] 15 Sanofi Pasteur (PMC) complet ed influenza virus vaccine, split virus (incl. purified surface antigen)- retired CODE DoD vaccinia (smallpox) vaccine 2004 [id number] 75 [employer] complet ed vaccinia (smallpox ) vaccine 03/01/05 Given Ambulat ory Pharmac y vaccinia (smallpox) vaccine 1 2004 [id number] 75 [facility] (WAL) complet ed vaccinia (smallpox ) vaccine [facility] tetanus-dipht h toxoids (Td) adult/adol 2004 [id number] 09 sanofi pasteur complet ed tetanus-d iphth toxoids (Td) adult/ado l 01/20/05 Given Ambulat ory Pharmac y tetanus and diphtheria toxoids, adsorbed, preservative free, for adult use (2 Lf of tetanus toxoid and 2 Lf of diphtheria toxoid) 1 2004 [id number] 09 Sanofi Pasteur (PMC) complet ed tetanus and diphtheri a toxoids, adsorbed, preservat alisson free, for adult use (2 Lf of tetanus toxoid and 2 Lf of diphtheri a toxoid) [facility] typhoid vaccine, inactivated 2004 [id number] 101 sanofi pasteur complet ed typhoid vaccine, inactivat ed 09/28/04 Given Ambulat ory Pharmac y typhoid vaccine, parenteral, other than acetone-kille d, dried 0 2004 [id number] 41 Sanofi Pasteur (PMC) complet ed typhoid vaccine, parentera l, other than acetone-k illed, dried DoD influenza virus vaccine, live 2004 [id number] 111 [employer] comple t ed influenza virus vaccine, live 08/24/04 Given Ambulat ory Pharmac y influenza virus vaccine, live, attenuated, for intranasal use 0 2004 [id number] 111 [employer] ([facility]) complet ed influenza virus vaccine, live, attenuate d, for intranasa l use DoD influenza virus vaccine, whole virus 2002 [id number] 16 sanofi pasteur complet ed influenza virus vaccine, whole virus 05/21/03 Given Ambulat ory Pharmac y influenza virus vaccine, whole virus 0 2002 [id number] 16 Sanofi Pasteur (PMC) complet ed influenza virus vaccine, whole virus DoD typhoid vaccine, inactivated 2001 [id number] 101 sanofi pasteur complet ed typhoid vaccine, inactivat ed 06/26/02 Given Ambulat ory Pharmac y tuberculin purified protein derivative 2001 [id number] 96 sanofi pasteur complet ed tuberculi n purified protein derivativ e 06/26/02 Given Ambulat ory Pharmac y typhoid vaccine, parenteral, other than acetone-kille d, dried 0 2001 [id number] 41 Sanofi Pasteur (PMC) complet ed typhoid vaccine, parentera l, other than acetone-k illed, dried DoD influenza virus vaccine, whole virus 2001 [id number] 16 sanofi pasteur complet ed influenza virus vaccine, whole virus 05/09/02 Given Ambulat ory Pharmac y influenza virus vaccine, whole virus 0 2001 [id number] 16 Sanofi Pasteur (PMC) complet ed influenza virus vaccine, whole virus DoD tuberculin purified protein derivative 2000 [id number] 96 sanofi pasteur complet ed tuberculi n purified protein derivativ e 07/03/01 Given Ambulat ory Pharmac y influenza virus vaccine, whole virus 2000 [id number] 16 sanofi pasteur complet ed influenza virus vaccine, whole virus 05/08/01 Given Ambulat ory Pharmac y influenza virus vaccine, whole virus 0 2000 [id number] 16 Sanofi Pasteur (PMC) complet ed influenza virus vaccine, whole virus DoD yellow fever vaccine 1999 [id number] 37 [facility] complet ed yellow fever vaccine 07/13/00 Given Ambulat ory Pharmac y meningococcal polysaccharid e (MPSV4) 1999 [id number] 32 [facility] complet ed meningoco ccal polysacch aride (MPSV4) 07/13/00 Given Ambulat ory Pharmac y meningococcal polysaccharid e vaccine (MPSV4) 0 1999 [id number] 32 [facility] (WAL) complet ed meningoco ccal polysacch aride vaccine (MPSV4) DoD yellow fever vaccine 0 1999 [id number] 37 [facility] (WAL) complet ed yellow fever vaccine DoD tuberculin purified protein derivative 1999 [id number] 96 sanofi pasteur complet ed tuberculi n purified protein derivativ e 07/11/00 Given Ambulat ory Pharmac y typhoid vaccine, inactivated 1999 [id number] 101 sanofi pasteur complet ed typhoid vaccine, inactivat ed 07/11/00 Given Ambulat ory Pharmac y influenza virus vaccine, whole virus 1999 [id number] 16 [facility] complet ed influenza virus vaccine, whole virus 07/11/00 Given Ambulat ory Pharmac y influenza virus vaccine, whole virus 0 1999 [id number] 16 [facility]) complet ed influenza virus vaccine, whole virus DoD typhoid vaccine, parenteral, other than acetone-kille d, dried 0 1999 [id number] 41 Sanofi Pasteur ([facility]) complet ed typhoid vaccine, parentera l, other than acetone-k illed, dried DoD influenza virus vaccine, whole virus 1998 [id number] 16 sanofi pasteur complet ed influenza virus vaccine, whole virus 06/01/99 Given Ambulat ory Pharmac y influenza virus vaccine, whole virus 0 1998 [id number] 16 Sanofi Pasteur ([facility]) complet ed influenza virus vaccine, whole virus DoD hepatitis A adult vaccine 1998 [id number] 52 Merck & Company Inc complet ed hepatitis A adult vaccine 02/25/99 Given Ambulat ory Pharmac y hepatitis A vaccine, adult dosage 2 1998 [id number] 52 Merck (MSD) complet ed hepatitis A vaccine, adult dosage DoD tetanus-dipht h toxoids (Td) adult/adol 1994 complet ed tetanus-d iphth toxoids (Td) adult/ado l 11/29/94 Given Ambulat ory Pharmac y measles/mumps /rubella virus vaccine 1994 complet ed measles/m umps/rube lla virus vaccine 11/29/94 Given Ambulat ory Pharmac y measles, mumps and rubella virus vaccine 0 1994 03 () complet ed measles, mumps and rubella virus vaccine DoD tetanus and diphtheria toxoids, adsorbed, preservative free, for adult use (2 Lf of tetanus toxoid and 2 Lf of diphtheria toxoid) 0 1994 09 () complet ed tetanus and diphtheri a toxoids, adsorbed, preservat alisson free, for adult use (2 Lf of tetanus toxoid and 2 Lf of diphtheri a toxoid) DoD poliovirus vaccine, live, oral 1981 02 complet ed polioviru s vaccine, live, oral 03/05/82 Given Ambulat ory Pharmac y trivalent poliovirus vaccine, live, oral 0 1981 02 () complet ed trivalent polioviru s vaccine, live, oral DoD Results Combined list of recent chemistry, hematology and other laboratory results from Department of Defense and Veterans Affairs, ranging from 15 months to all on record, depending upon the facility. Order Name Results Value Reference Range Date Interpretation Specimen Comments Source Infectious Disease HIV-1/O/ 2 Non-Re active 1 ( 2:40 PM) 03/03 N Interpretive Data: INTERPRETATIO N: This method is a screening procedure for the detection of HIV p24 Antigen and Antibodies to HIV-1, including Group O, and/or HIV-2. NON-REACTIVE: HIV-1 antigen and HIV-1 / HIV-2 antibodies were not detected. No laboratory evidence of HIV infection. A negative test result does not exclude the possibility of exposure to or infection with HIV. HIV antibodies and/or p24 antigen may be undetectable in some stages of the infection and in some clinical conditions. If acute HIV infection is suspected, consider submitting another specimen to a reference laboratory for HIV-1 RNA. SCREEN REACTIVE - CONFIRMATION TO FOLLOW: Possible presence of HIV-1antibodi es, HIV-2 antibodies and/or HIV-1 p24 antigen. Specimen will reflex to the confirmation testing that fulfills the Center for Disease Control and Prevention's HIV diagnostic algorithm. Refer to [facility] Lab Guide for additional information: [email or web address] Testing performed by [employer] [facility]. [id number] SAFS[facility] EPILAB Vital Signs Combined list of inpatient and outpatient Vital Signs from Department of Defense and Veterans Affairs, ranging from 12 months to all on record, depending upon the facility. Vital Sign Value Date Comments Source Respiratory Rate 16 br/min 03/03/2023 18:47:00 [facility] Systolic Blood Pressure 143 mm[Hg] 03/03/2023 18:47:00 [facility] Diastolic Blood Pressure 98 mm[Hg] 03/03/2023 18:47:00 [facility] Mean Arterial Pressure, Calc 113 mm[Hg] 03/03/2023 18:47:00 [facility] Peripheral Pulse Rate 79 bpm 03/03/2023 18:47:00 [facility] Blood Pressure Manual Automatic 02/27/2024 14:51:00 [facility] Peripheral Pulse Rate 84 bpm 02/27/2024 14:51:00 [facility] Mean Arterial Pressure, Calc 98 mm[Hg] 02/27/2024 14:51:00 [facility] BP Site Right arm 02/27/2024 14:51:00 [facility] Systolic Blood Pressure 129 mm[Hg] 02/27/2024 14:51:00 [facility] Diastolic Blood Pressure 82 mm[Hg] 02/27/2024 14:51:00 [facility] Respiratory Rate 16 br/min 02/27/2024 14:51:00 [facility] Temperature Oral 37 Eloise 02/27/2024 14:51:00 [facility] Encounters Combined list of: 1) Encounters from Department of Veterans Affairs facilities going backup to the last 18 months, not all VA inpatient encounters are included; 2) Encounters from the Department of Defense facilities going backup to 280 months. Location Location Details Encounter Type Encounter Number Reason For Visit Attending Provider ADM Date DC Date Status Disposition Source [employer](FOM C-Flight and Ops Medicine) OUTPATIENT [id number] lft shoulde r pain when moved in certain directi on NESS ZAKI Alexa 06/30 Released w/o Limitations [employer](F OMC-Fli ght and Ops Medicin e) [employer](Opt ometry Clinic) OUTPATIENT [id number] SHIMON WALKER 01/04 Released w/o Limitations [employer] [facility](O ptometr y Clinic) [employer](FOM C-Flight and Ops Medicine) OUTPATIENT [id number] SHIMON Geiger 01/10 Released w/o Limitations [employer] [facility](F OMC-Fli ght and Ops Medicin e) [employer] [facility](FOM C-Flight and Ops Medicine) OUTPATIENT [id number] Wart eval ZAKI ARZOLA 06/08 Released w/o Limitations [employer] [facility](F OMC-Fli ght and Ops Medicin e) [employer] [facility](FOM C-Flight and Ops Medicine) OUTPATIENT [id number] NICK Singh 10/28 Released w/o Limitations [employer] [facility](F OMC-Fli ght and Ops Medicin e) [employer] [facility]OM C-Flight [facility] Ops Medicine) OUTPATIENT [id number] wart chk.... . RAJ CHILDERS 04/28 Released w/o Limitations [employer] [facility](F OMC-Fli ght and Ops Medicin e) [employer] [facility](FOM C-Flight and Ops Medicine) OUTPATIENT [id number] PROCEDU RE - REMOVE WART ON RIGHT LEG RAJ CHILDERS 05/09 Released w/o Limitations [employer] [facility](F OMC-Fli ght and Ops Medicin e) [employer] [facility](FOM C-Flight and Ops Medicine) OUTPATIENT [id number] f/u on wart removal wart came back ZAKI ARZOLA 06/28 Released w/o Limitations [employer] [facility](F OMC-Fli ght and Ops Medicin e) [address] [place] [address])([facility] Flight [facility] ) TELE CONSULT [id number] Notes Entered by: ARTEMIO ASH 14 Nov 2011 1026 ------- ------- ------- ------- -- Malaria RUDY Thomas 11/[address] [place] [address])([facility]) [address] [place] [address])([facility] ) OUTPATIENT [id number] Notes Entered by: CHRIS WALTERS 19 Apr 2012 1503 ------- ------- ------- ------- -- Need for Prophyl actic Measure SANDRA REYES 04/19 Released w/o Limitations [address] [place] [address])([facility]) [address] [place] [address])([facility] ) TELE CONSULT [id number] Notes Entered by: ZAKI SPARROW 17 Sep 2015 1434 ------- ------- ------- ------- -- Anti-ma larial medicat ions needed for Flight Simpson ЕЛЕНА REDDY 09/[address] [place] [address])([facility]) [address] [place] [address])([facility]) TELE CONSULT [id number] Notes Entered by: LILIANA OLSEN 27 Dec 2017 0632 ------- ------- ------- ------- -- DACIA Quinn 12/27 Other Not Elsewhere Classified [address] [place] [address])([facility]) [address] [place] [address])([facility]) OUTPATIENT [id number] 42 YO MALE, NO GLASSES , NO WAIVERS EDIL OWENS Stephania 01/10 Released w/o Limitations [address] [place] [address])([facility]) [address] [place] [address])(Aud iology Procedure s) OUTPATIENT [id number] Notes Entered by: Uri MEDINA 12 Jan 2018 0810 ------- ------- ------- ------- -- Flyer MARILU SRIVASTAVA 01/12 Released w/o Limitations [address] [place] [address])(A udiolog y Procedu res) [address] [place] [address])([facility] OUTPATIENT [id number] 9 43 y/o m pt no glasses /no waiver DEEPTHI BLANC 01/28 Released w/o Limitations [address] [place] [address])([facility]) [address] [place] [address])(Aud iology Procedure s) OUTPATIENT [id number] Notes Entered by: Stalin MOSLEY 04 Mar 2019 1044 ------- ------- ------- ------- -- FlyRICHARD Dewey 03/04 Released w/o Limitations [address] [place] [address])(A udiolog y Procedu res) [address] [place] [address])([facility]) OUTPATIENT [id number] 8 44 y/o male FLY PHA/ Unit [employer]/n o glasses /no waivers /[id number] ESTEFANI ZAVALA 02/27 Released w/o Limitations [address] [place] [address])([facility]) [address] [place] [address])(Aud iology Procedure s) OUTPATIENT [id number] 9 annual af flyer JAJA THORNTON 03/02 Released w/o Limitations [address] [place] [address])(A udiolog y Procedu res) [address] [place] [address])(Aud iology Procedure s) OUTPATIENT [id number] 2 Flyer JAJA RUELAS Nae 02/19 Released w/o Limitations [facility] [place] ud[place]olog y Procedu res[place] [facility] [facility] [place] T[facility]) OUTPATIENT [id number] 9 45m/DEREK CTIVE/P ILOT/NG LASSES/ NWAIVER ESTEFANI ZAVALA 02/19 Released w/o Limitations [facility] [place] [place] [place]) [facility] [place] [facility] [place] ) OUTPATIENT [id number] [facility] [id number] ESTEFANI ZAVALA 03/20 Released w/o Limitations [facility] [place] [facility] [place] [facility])(Aud iology Procedure s) OUTPATIENT [id number] Notes Entered by: Uri FONSEAC 16 Feb 2022 0949 ------- ------- ------- ------- -- ANNUAL FLYER PEYMAN FONSECA 02/16 Released w/o Limitations [facility] [place] [place]A udiolog y Procedu res) [facility] ) OUTPATIENT [id number] 9 46/inac tive/pi dahiana/kurtis hetcor/ASHUTOSH Tsang 03/04 Released w/o Limitations [facility] [place] T[facility]) [facility] Outpatient Encounter [id number] 10/25 [facility] [id number] CLARIBEL WILBERT 02/22 Discharge Disposition: Home or Self Care [facility] [place] [facility] [id number] EXAM, OCCUPAT IONAL, AVIATIO N, LONG,Es sential (primar y) hyperte nsion NIKKI EORGAN 02/26 Discharge Disposition: Home or Self Care 5C-3 [facility] 5C-375 th [facility] [id number] EXAM, FORMAL OCCUPAT IONAL HEALTH PROGRAM INCLUDI [place] HEARING CONSERV ATION PROGRAM , HUGOI Matilde FOR 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 Procedure Procedure Type Code Date Perfomer Comments Sour e Threshold Audiogram (Pure Tone) Automated Threshold Audiogram (Pure Tone) Automated 0208T 03/04/20 19 RICHARD MOSLEY [facility] Threshold Audiogram (Pure Tone) Threshold Audiogram (Pure Tone) 35521 03/04/20 19 DEEPTHI BLANC [facility] Visual Kraft Test Limited Examination Visual Kraft Test Limited Examination 85349 03/04/20 19 DEEPTHI BLANC [facility] Screening Test Of Visual Acuity, Quantitative, Bilateral Screening Test Of Visual Acuity, Quantitative, Bilateral 80821 03/04/20 19 DEEPTHI BLANC [facility] Threshold Audiogram (Pure Tone) Automated Threshold Audiogram (Pure Tone) Automated 0208T 01/13/20 18 MARILU BALDWIN [facility] Destruction Of Flat Warts By Cryosurgery Up To 14 Lesions 06/28/20 06 ZAKI ARZOLA [facility] Biopsy Skin Biopsy Skin 77007 05/09/20 06 RAJ CHILDERS [facility] Screening Test Of Visual Acuity, Quantitative, Bilateral Screening Test Of Visual Acuity, Quantitative, Bilateral 69912 10/29/19 06 NICK HURT [facility] Audiogram (Screening) Audiogram (Screening) 53601 10/29/19 06 NICK HURT [facility] Destruction Of Flat Warts By Cryosurgery Up To 14 Lesions 06/08/20 05 ZAKI ARZOLA [facility] Audiogram (Screening) Audiogram (Screening) 62124 01/11/20 05 SHIMON CASTRO [facility] Visual Function Screening Visual Function Screening 97579 01/05/20 05 SHIMON WALKER [facility] Threshold Audiogram (Pure Tone) Automated Threshold Audiogram (Pure Tone) Automated 0208T JAJA THORNTONEL [facility] Screening Test Of Visual Acuity, Quantitative, Bilateral Screening Test Of Visual Acuity, Quantitative, Bilateral 07289 ESTEFANI ZAVALA [facility] Threshold Audiogram (Pure Tone) Threshold Audiogram (Pure Tone) 81753 ESTEFANI ZAVALA [facility] Visual Kraft Test Limited Examination Visual Kraft Test Limited Examination 86354 ESTEFANI ZAVALA [facility] Electrocardiogram Electrocardiogram 20034 ESTEFANI ZAVALA [facility] Waiver services; not otherwise specified (NOS) ESTEFANI ZAVALA [facility] DESTRUCTION (EG, LASER SURGERY, ELECTROSURGERY, CRYOSURGERY, CHEMOSURGERY, SURGICAL CURETTEMENT), OF BENIGN LESIONS OTHER THAN SKIN TAGS OR CUTANEOUS VASCULAR PROLIFERATIVE LESIONS; UP TO 14 LESIONS 06/28/20 06 [facility] BIOPSY OF SKIN, SUBCUTANEOUS TISSUE AND/OR MUCOUS MEMBRANE (INCLUDING SIMPLE CLOSURE), UNLESS OTHERWISE LISTED; SINGLE LESION 05/09/20 06 [facility] SCREENING TEST OF VISUAL ACUITY, QUANTITATIVE, BILATERAL 10/29/19 06 [facility] DESTRUCTION (EG, LASER SURGERY, ELECTROSURGERY, CRYOSURGERY, CHEMOSURGERY, SURGICAL CURETTEMENT), OF BENIGN LESIONS OTHER THAN SKIN TAGS OR CUTANEOUS VASCULAR PROLIFERATIVE LESIONS; UP TO 14 LESIONS 06/08/20 05 [facility] SCREENING TEST, PURE TONE, AIR ONLY 01/11/20 05 [facility] VIS FUNCT SCREEN,AUTOMAT/SEMI-A UTOMAT BILAT QUANT DETERM VISUAL ACUITY,OCULAR ALIGN,COLOR VISION,PSEUDOISOCHROM AT PLATES,& FIELD VIS (MAY INC ALL/SOME SCRN DETERM FOR CONTRAST SENSITIV,VIS UND GLARE) 01/05/20 05 [facility] PHYSICAL THERAPY RE-EVALUATION 10/01/19 05 [facility] PHYSICAL THERAPY RE-EVALUATION 08/17/19 05 [facility] PHYSICAL THERAPY EVALUATION 07/21/20 04 [facility] RANGE OF MOTION MEASUREMENTS AND REPORT (SEPARATE PROCEDURE); EACH EXTREMITY (EXCLUDING HAND) OR EACH TRUNK SECTION (SPINE) 07/01/20 04 [facility] ADMINISTRATION OF PATIENT-FOCUSED HEALTH RISK ASSESSMENT INSTRUMENT (EG, HEALTH HAZARD APPRAISAL) WITH SCORING AND DOCUMENTATION, PER STANDARDIZED INSTRUMENT 03/07/20 [facility] PURE TONE AUDIOMETRY (THRESHOLD), AUTOMATED; AIR ONLY 02/17/20 [facility] WAIVER SERVICES; NOT OTHERWISE SPECIFIED (NOS) 03/22/20 [facility] ELECTROCARDIOGRAM, ROUTINE ECG WITH AT LEAST 12 LEADS; WITH INTERPRETATION AND REPORT 02/23/20 [facility] PURE TONE AUDIOMETRY (THRESHOLD), AUTOMATED; AIR ONLY 02/20/20 [facility] VISUAL FIELD EXAMINATION, UNI OR BILATERAL, WITH MEDICAL DIAGNOSTIC EVAL; LIMITED EXAM (EG, TANGENT SCREEN, AUTOPLOT, ARC PERIMETER, OR SINGLE STIMULUS LEVEL AUTO TEST, EG OCTOPUS 3 OR 7 EQUIVALENT) 03/02/20 [facility] PURE TONE AUDIOMETRY (THRESHOLD), AUTOMATED; AIR ONLY 03/02/20 [facility] PURE TONE AUDIOMETRY (THRESHOLD), AUTOMATED; AIR ONLY 03/04/20 [facility] ADMINISTRATION OF PATIENT-FOCUSED HEALTH RISK ASSESSMENT INSTRUMENT (EG, HEALTH HAZARD APPRAISAL) WITH SCORING AND DOCUMENTATION, PER STANDARDIZED INSTRUMENT 03/04/20 [facility] ADMINISTRATION OF PATIENT-FOCUSED HEALTH RISK ASSESSMENT INSTRUMENT (EG, HEALTH HAZARD APPRAISAL) WITH SCORING AND DOCUMENTATION, PER STANDARDIZED INSTRUMENT 01/13/20 [facility] PURE TONE AUDIOMETRY (THRESHOLD), AUTOMATED; AIR ONLY 01/13/20 18 [facility] Destruction Of Flat Warts By Cryosurgery Up To 14 Lesions [facility] Biopsy Skin [facility] PURE TONE AUDIOMTRY THRESHOLD COMPUTER DEV AIR PURE TONE AUDIOMTRY THRESHOLD COMPUTER DEV AIR 0208T [facility] Social History Combined list of available smoking, tobacco, and other social history from Department of Defense and Veterans Affairs facilities. Social History Type Response Date Comment Sourc e This section is an empty soc ial history section. [facility] Sexual Orientation Ambula tory Pharmacy Gender identity Ambulator y Pharmacy Sex Representation Male (finding) Un known Organization Assessment and Plan Combined list of future care activities from Department of Defense and Veterans Affairs facilities (e.g., assessment and plan notes, appointments, orders, and referrals). Additional future care activities may be listed in the Plan of Care section. Result Assessment and Plan Date Source Assessment and Plan Extracted from:Title : Fly PHA Author: LEIGH ANN BRUCE DO Date: 02/27/24 1. 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 Reviewed PHAQ answers w ith truck service manager?and provided appropriate counseling. N o critical items noted on PHA. No SI/HI. Waivers: N one Vision: Meets standards No S tandard Threshold Shift (STS) noted on audiogram. A udiogram meets [employer] standards IAW MSD Table 2. Audiogram meets standard: H1 EKG at 3 5 then every 5 years: N ot requiredthis visit Visual acuity - referred to optometry IMR Status: G reen - Labs: U p to date - Immunizations: U p to date - Dental: U p to date ASIMS generated text copied to e ncounter Last In-Person PHA date updated in ASIMS No concerns on MHA. See ASIMS AHLTA text. Follow up as needed. P atient showed understanding. Profile: N o MR/DR/FR Retention: M eets Standards ALC: N /A PRAP: N /A Aeromedical Disposition: N o DNIF PHA 2992 signed for annual exam 2. E ssential (primary) hypertension - Repeat BP at goal. Continue with lisinopril. //SIGNED//Leigh Ann Bruce DO [employer], [employer], [employer], FS Extracted from:Title: Eye Care Office NVA check Author: PILI OLVERA Date: 02/27/24 EXAM, FORMAL OCCUPATIONAL HEALTH PROGRAM INCLUDING HEARING CONSERVATION PROGRAM, PERIODIC FOR CONTINUED SURVEILLANCE FOR OCCUPATIONAL WORKPLACE EXPOSURE Extracted from:Title: [facility] - Annual flight physical Author: ESTEFANI ZAVALA MD Date: 03/03/23 1. 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 -not on current waiver -not on current profile/ALC -Audiogram completed January. Stable H-2 profile for isolated 6000Hz hearing loss. No significant threshold shift f rom 2021 audiogram (no baseline reset as outside the 2000-4000Hz OSHA range) -HIV overdue, ordered. 2 020 Lipids normal, UTD. 2 021 HgbA1c and TSH normal, UTD. Plan on repeating next year to synchronize all three -2020 EKG normal. Q5y EKG UTD -discussed initial screening CSP age 45, member already screening with his civilian PCM, DID have a positive Cologuard so has his follow up colonoscopy scheduled in a few weeks, results pending. 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 -Web Health Assessment reviewed and health issues were addressed as indicated. -Return to clinic as needed. J-coded no DNIF //SIGNED// Lt Lux SANCHEZ, [facility], Route Sales Manager, Aerospace Medicine Family Physician/Flight Surgeon [facility]EDRA, [facility] Breonna Ngo DSN/Comm: [phone] / [phone] 2. 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 E ssential (primary) hypertension Mildly hypertensive, goal BP<140/90 Stable on Lisinopril 5mg daily, managed by civilian PCM. Does note he takes Lisinopril in the evening, and at home it has been 130/80, so recommended routine follow up with his PCM if he notes any ongoing elevation since he IS on an extremely low dose f/u with PCM annually for re-eval 4. H earing loss of left ear Unilateral LEFT sided H-2 profile with isolated 6000Hz=55DB, otherwise continued H-1 profile -stable benign SNHL, initially noted and worked up in 2001 to include MRI IAC and ENT evaluation, stable a t member's 2013 VA service connection evaluation when member had left H-2 profile with 6000Hz=45DB and 8000Hz=60DB, and continues to be stable on annual audiograms in the interim -no DNIF or waiver required for H-2 profile s/p work up. Continue to monitor Extracted from:Title: NVA Recheck per Flight Medicine Author: BRITANY HORTA Date: 03/03/23 1. P resbyopia 01/02/2025 [facility] Functional Status Combined list of recent functional and cognitive assessments recorded at Department of Defense and Veterans Affairs (VA).VA Functional [place] Measurement (FIM) Scale: 1 = Total Assistance (Subject = 0% +), 2 = Maximal Assistance (Subject = 25% +), 3 = Moderate Assistance (Subject = 50% +), 4 = Minimal Assistance (Subject = 75% +), 5 = Supervision, 6 = Modified [place] (Device), 7 = Complete [place] (Timely, Safely). Assessment Date/Time Source Assessment Type Assessment Skill Assessment Score Assessment Details No data available for this section
--- OUTSIDE RECORDS SUMMARY | 2025-01-02 11:39 | XMS_ITS | Continuity of Care Document ---
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 Tolerated well without complication. DoD visit for: services physical Inactive Condition DoD WARTS COMMON Active Condition DoD visit for: issue medical certificate fitness Inactive Condition DoD visit for: screening exam eye disorders Inactive Condition DoD SHOULDER SPRAIN SUPRASPINATUS TENDON LEFT Inactive Condition versus biceps tendon sprain DoD Medications Combined list of outpatient medications from [...] 0 total refill(s ), Soft Stop Ordered 2022-3 [facility] Allergies, Adverse Reactions, Alerts Combined list of allergies from Department of Defense and Veterans Affairs facilities. It does not include entries that were removed or entered in error. Substance Category Reaction Severity Reaction type Status Date Reported Comments Source No Known Allergies Drug allergy (disorder) active 01/13/2016 Gian Bonilla [place], [place] Immunizations Combined list of available immunizations from the Department of Defense and Veterans Affairs facilities. Immunization Series Date Given Administered By Site Reaction Lot Number CVX Code Drug Ammonia Solution Preparer Status Comments Source typhoid vaccine, inactivated 2022 ETHANJPOCKLIN GTON Shoul chong, left (delt oid) [id number] sanofi pasteur complet ed typhoid vaccine, inactivat ed 06/06/23 Given -3 [facility] influenza virus vaccine, inactivated 2022 SAMUELMPLASTE R Shoul chong, left (delt oid) [id number] 150 [employer] [place] complet ed influenza virus vaccine, inactivat ed 05/10/23 Given -3 [facility] tetanus-dipht h toxoids (Td) adult/adol 2021 [id number] 09 sanofi pasteur complet ed tetanus-d iphth toxoids (Td) adult/ado l 04/14/22 Given Ambulat ory Pharmac y meningococcal oligosacchari de (MCV4O) 2021 [id number] 136 GlaxoSmithKli ne complet ed meningoco ccal oligosacc haride (MCV4O) 12/31/21 Given Ambulat ory Pharmac y COVID Vaccine Moderna 2020 ANTONIO KWANKI 207 complet ed Result Comment: Unit: Unknown Manufactu rer: Moderna US, Inc. (MOD) 5C-3 [facility] COVID-19, mRNA, LNP-S, PF, 100 mcg or 50 mcg dose 2020 DARIA Moderna US, Inc. (MOD) Not Given COVID-19, mRNA, LNP-S, PF, 100 mcg or 50 mcg dose DoD influenza, seasonal, injectable 2020 TRANSCR IBED 141 complet ed influenza , seasonal, injectabl e 10/4/21 Given Ambulat ory Pharmac y typhoid Vi capsular polysaccharid e vac 2020 [id number] 101 sanofi pasteur complet ed typhoid Vi capsular polysacch aride vac 04/21/21 Given Ambulat ory Pharmac y SARS-CoV-2 (COVID-19) Ad26 vaccine, rec 2020 [id number] complet ed SARS-CoV- 2 (COVID-19 ) Ad26 vaccine, rec 09/25/20 Given Ambulat ory Pharmac y SARS-COV-2 (COVID-19) vaccine, vector non-replicati ng, recombinant spike protein-Ad26, preservative free, 0.5 mL 1 2020 [id number] 212 [facility] (JSN) comple t ed SARS-COV- 2 (COVID-19 ) vaccine, vector non-repli cating, recombina nt spike protein-A d26, preservat alisson free, 0.5 mL DoD influenza, injectable, quadrivalent- pf 2019 150 complet ed influenza , injectabl e, quadrival ent-pf 04/27/20 Given Ambulat ory Pharmac y influenza, injectable, quadrivalent, preservative free 2019 ALUL, () Not Given influenza , injectabl e, quadrival ent, preservat alsison free DoD Influenza, injectable, quadrivalent, preservative free [...] typhoid Vi capsular polysaccharid e vac 2018 [id number] 101 sanofi pasteur complet ed typhoid Vi capsular polysacch aride vac 03/14/19 Given Ambulat ory Pharmac y typhoid Vi capsular polysaccharid e vaccine 10 2018 [id number] 101 Sanofi Pasteur (PMC) complet ed typhoid Vi capsular polysacch aride vaccine DoD influenza, injectable, quadrivalent- pf 2017 [id number] 150 [facility] complet ed influenza , injectabl e, quadrival ent-pf 07/06/18 Given Ambulat ory Pharmac y Influenza, injectable, quadrivalent, preservative free 20 2017 [id number] 150 [facility] (SKB) complet ed Influenza , injectabl e, quadrival ent, preservat alisson free DoD influenza virus vaccine, inactivated 2016 [id number] 88 Seqirus complet ed influenza virus vaccine, inactivat ed 05/28/17 Given Ambulat ory Pharmac y Influenza, injectable, [place]in [place] Canine Kidney, quadrivalent with preservative 1 2016 [id number] 186 Seqirus (SEQ) comple t ed Influenza , injectabl e, [place] Canine Kidney, quadrival ent with preservat alisson DoD typhoid Vi capsular polysaccharid e vac 2016 L1570 1 101 sanofi pasteur complet ed typhoid Vi capsular polysacch aride vac 11/26/16 Given Ambulat ory Pharmac y typhoid Vi capsular polysaccharid e vaccine 9 2016 L1570 1 101 Sanofi Pasteur (PMC) complet ed typhoid Vi capsular polysacch aride vaccine DoD meningococcal A,C,Y,W-135 (MCV4P) 2016 H21521 114 Novartis UNYQtica ls complet ed meningoco ccal A,C,Y,W-1 35 (MCV4P) 11/02/16 Given Ambulat ory Pharmac y meningococcal polysaccharid e (groups A, C, Y and W-135) diphtheria toxoid conjugate vaccine (MCV4P) 1 2016 [id number] 114 Volvetica l Joseph. (NOV) complet ed meningoco ccal polysacch aride (groups A, C, Y and W-135) diphtheri a toxoid conjugate vaccine (MCV4P) DoD influenza, seasonal, injectable-pf 2015 [id number] 140 Seqirus complet ed influenza , seasonal, injectabl e-pf 04/25/16 Given Ambulat ory Pharmac y Influenza, seasonal, injectable, preservative free 0 2015 [id number] 140 Seqirus (SEQ) comple t ed Influenza , seasonal, injectabl e, preservat alisson free DoD influenza, live, intranasal,qu adrivalent 2014 [id number] 149 Medimmune Inc comple t ed influenza , live, intranasa l,quadriv alent 04/30/15 Given Ambulat ory Pharmac y influenza, live, intranasal, quadrivalent 17 2014 [id number] 149 MedImmune, Inc. (MED) complet ed influenza , live, intranasa l, quadrival ent DoD typhoid Vi capsular polysaccharid e vac 2014 K1183 101 sanofi pasteur complet ed typhoid Vi capsular polysacch aride vac 11/06/14 Given Ambulat ory Pharmac y typhoid Vi capsular polysaccharid e vaccine 1 2014 K1183 101 Sanofi Pasteur (PMC) complet ed typhoid [...] Pharmac y influenza, live, intranasal,qu adrivalent 2013 [id number] 149 Medimmune Inc comple t ed influenza , live, intranasa l,quadriv alent 04/17/14 Given Ambulat ory Pharmac y hepatitis B vaccine, adult dosage 2 2013 [id number] 43 SmithKline (SKB) complet ed hepatitis B vaccine, adult dosage DoD influenza, live, intranasal, quadrivalent 16 2013 [id number] 149 MedImmune, Inc. (MED) complet ed influenza , live, intranasa l, quadrival ent DoD hepatitis B adult vaccine 2013 [id number] 43 GlaxoSmithKli ne complet ed hepatitis B adult vaccine 01/11/14 Given Ambulat ory Pharmac y hepatitis B vaccine, adult dosage 1 2013 [id number] 43 SmithKline (SKB) complet ed hepatitis B vaccine, adult dosage DoD Influenza, injectable, MDCK-pf 2012 [id number] 153 Novartis UNYQtica complet ed Influenza , injectabl e, MDCK-pf 06/04/13 Given Ambulat ory Pharmac y measles/mumps /rubella virus vaccine 2012 [id number] 03 Merck & Company Inc complet ed measles/m umps/rube lla virus vaccine 06/04/13 Given Ambulat ory Pharmac y measles, mumps and rubella virus vaccine 1 2012 [id number] 03 Merck (MSD) complet ed measles, mumps and rubella virus vaccine DoD Influenza, injectable, Madin [place]ora Canine Kidney, preservative free 0 2012 [id number] 153 Novartis [employer]. (NOV) complet ed Influenza , injectabl e, [place] Canine Kidney, preservat alisson free DoD typhoid Vi capsular polysaccharid e vac 2012 G1542 101 sanofi pasteur complet ed typhoid Vi capsular polysacch aride vac 10/05/12 Given Ambulat ory Pharmac y typhoid Vi capsular polysaccharid e vaccine 1 2012 G1542 101 Sanofi Pasteur (PMC) complet ed typhoid Vi capsular polysacch aride vaccine DoD influenza, seasonal, injectable 2011 [id number] 141 sanofi pasteur complet ed influenza , seasonal, injectabl e 06/30/12 Given Ambulat ory Pharmac y Influenza, seasonal, injectable 1 2011 [id number] 141 Sanofi Pasteur (PMC) complet ed Influenza , seasonal, injectabl e DoD tetanus, diphtheria, acellular pertu is 2011 [id number] 7BC 115 [facility] tetanus, diphtheri a, acellular pertussis 03/10/12 Given Ambulat ory Pharmac y tetanus toxoid, reduced diphtheria toxoid, and acellular pertu is vaccine, adsorbed 0 2011 [id number] 7BC 115 Le[employer] (SKB) complet ed tetanus toxoid, reduced diphtheri a toxoid, and acellular pertussis vaccine, adsorbed DoD meningococcal A,C,Y,W-135 (MCV4P) 2011 [id number] 114 sanofi pasteur complet ed meningoco ccal A,C,Y,W-1 35 (MCV4P) 10/05/11 Given Ambulat ory Pharmac y meningococcal polysaccharid e (groups A, C, Y and W-135) diphtheria toxoid conjugate vaccine (MCV4P) 1 2011 [id number] 114 Sanofi Pasteur (PMC) complet ed meningoco ccal polysacch aride (groups A, C, Y and W-135) diphtheri a toxoid conjugate vaccine (MCV4P) DoD influenza, seasonal, injectable 2010 [id number] 141 sanofi pasteur complet ed influenza , seasonal, injectabl e 05/07/11 Given Ambulat ory Pharmac y Influenza, seasonal, injectable 0 2010 [id number] 141 Sanofi Pasteur (PMC) complet ed Influenza , seasonal, injectabl e DoD yellow fever vaccine 2010 [id number] 37 sanofi pasteur complet ed yellow fever vaccine 09/04/10 Given Ambulat ory Pharmac y typhoid Vi capsular polysaccharid e vac 2010 D0412 101 sanofi pasteur complet ed typhoid Vi capsular polysacch aride vac 09/04/10 Given Ambulat ory Pharmac y yellow fever vaccine 1 2010 [id number] 37 Sanofi Pasteur (PMC) complet ed yellow fever vaccine DoD typhoid Vi capsular polysaccharid e vaccine 1 2010 D0412 101 Sanofi Pasteur (PMC) complet ed typhoid Vi capsular polysacch aride vaccine DoD influenza virus vaccine,split 2010 [id number] 15 sanofi pasteur complet ed influenza virus vaccine,s plit 08/05/10 Given Ambulat ory Pharmac y influenza virus vaccine, split virus (incl. purified surface antigen)-reti red CODE 1 2010 [id number] 15 Sanofi Pasteur (PMC) complet ed influenza virus vaccine, split virus (incl. purified surface antigen)- retired CODE DoD Novel influenza-H1N 1-09, injectable 2009 [id number] 1 127 Novartis Pharmaceutica ls complet ed Novel influenza -Z8D7-72, injectabl e 10/06/09 Given Ambulat ory Pharmac y Novel influenza-H1N 1-09, injectable 1 2009 [id number] 1 127 Novartis Pharmaceutica l Joseph. (NOV) complet ed Novel influenza -A0O8-35, injectabl e DoD influenza virus vaccine,split 2008 [id number] 15 sanofi pasteur complet ed influenza virus vaccine,s plit 07/04/09 Given Ambulat ory Pharmac y influenza virus vaccine, split virus (incl. purified surface antigen)-reti red CODE 1 2008 [id number] 15 Sanofi Pasteur ([facility]) complet ed influenza virus vaccine, split virus (incl. purified surface antigen)- retired CODE DoD typhoid Vi capsular polysaccharid e vac 2008 T4107-8 101 sanofi pasteur complet ed typhoid Vi capsular polysacch aride vac 10/03/08 Given Ambulat ory Pharmac y typhoid Vi capsular polysaccharid e vaccine 1 2008 S3201-9 101 Sanofi Pasteur ([facility]) complet ed typhoid Vi capsular polysacch aride vaccine DoD influenza virus vaccine,split 2007 [id number] 15 sanofi pasteur complet ed influenza virus vaccine,s plit 07/05/08 Given Ambulat ory Pharmac y influenza virus vaccine, split virus (incl. purified surface antigen)-reti red CODE 1 2007 [id number] 15 Sanofi Pasteur ([facility]) complet ed influenza virus vaccine, split virus (incl. purified surface antigen)- retired CODE DoD influenza virus vaccine,split 2006 [id number] 15 KIS GroupoSmJ C LadsKli ne complet ed influenza virus vaccine,s plit 05/26/07 Given Ambulat ory Pharmac y influenza virus vaccine, split virus (incl. purified surface antigen)-reti red CODE 1 2006 [id number] 9AA 15 SmithGlucoSentientine (SKB) complet ed influenza virus vaccine, split virus (incl. purified surface antigen)- retired CODE [facility] typhoid vaccine, inactivated 2006 [id number] 101 sanofi pasteur complet ed typhoid vaccine, inactivat ed 09/23/06 Given Ambulat ory Pharmac y meningococcal A,C,Y,W-135 (MCV4P) 2006 [id number] 114 sanofi pasteur complet ed meningoco ccal A,C,Y,W-1 35 (MCV4P) 09/23/06 Given Ambulat ory Pharmac y typhoid vaccine, parenteral, other than acetone-kille d, dried 1 2006 [id number] 41 Sanofi Pasteur ([facility]) complet ed typhoid vaccine, parentera l, other than acetone-k illed, dried DoD meningococcal polysaccharid e (groups A, C, Y and W-135) diphtheria toxoid conjugate vaccine (MCV4P) 1 2006 [id number] 114 Sanofi Pasteur (PMC) complet ed meningoco ccal polysacch aride (groups A, C, Y and W-135) diphtheri a toxoid conjugate vaccine (MCV4P) [facility] influenza virus vaccine, live 2005 [id number] 111 [employer] comple t ed influenza virus vaccine, live 05/24/06 Given Ambulat ory Pharmac y varicella virus vaccine 0 2005 21 () Not Given varicella virus vaccine DoD influenza virus vaccine, live, attenuated, for intranasal use 1 2005 [id number] 111 [employer]. (MED) complet ed influenza virus vaccine, live, attenuate d, for intranasa l use DoD influenza virus vaccine,split 2004 [id number] 15 sanofi pasteur complet ed influenza virus vaccine,s plit 04/23/05 Given Ambulat ory Pharmac y influenza virus vaccine, split virus (incl. purified surface antigen)-reti red CODE 1 2004 [id number] 15 Sanofi Pasteur (PMC) complet ed influenza virus vaccine, split virus (incl. purified surface antigen)- retired CODE DoD vaccinia (smallpox) vaccine 2004 [id number] 75 [employer] complet ed vaccinia (smallpox ) vaccine 03/01/05 Given Ambulat ory Pharmac y vaccinia (smallpox) vaccine 1 2004 [id number] 75 [facility] complet ed vaccinia (smallpox ) vaccine [facility] tetanus-dipht h toxoids (Td) adult/adol 2004 [id number] 09 sanofi pasteur complet ed tetanus-d iphth toxoids (Td) adult/ado l 01/20/05 Given Ambulat ory Pharmac y tetanus and diphtheria toxoids, adsorbed, preservative free, for adult use (2 Lf of tetanus toxoid and 2 Lf of diphtheria toxoid) 1 2004 [id number] 09 Sanofi Pasteur (PMC) complet ed tetanus and diphtheri a toxoids, adsorbed, preservat alisson free, for adult use (2 Lf of tetanus toxoid and 2 Lf of diphtheri a toxoid) [facility] typhoid vaccine, inactivated 2004 Z1614-8 101 sanofi pasteur complet ed typhoid vaccine, inactivat ed 09/28/04 Given Ambulat ory Pharmac y typhoid vaccine, parenteral, other than acetone-kille d, dried 0 2004 Y4033-6 41 Sanofi Pasteur (PMC) complet ed typhoid vaccine, parentera l, other than acetone-k illed, dried DoD influenza virus vaccine, live 2004 [id number] 111 [employer] comple t ed influenza virus vaccine, live 08/24/04 Given Ambulat ory Pharmac y influenza virus vaccine, live, attenuated, for intranasal use 0 2004 [id number] 111 [employer]. ([facility]) complet ed influenza virus vaccine, live, attenuate d, for intranasa l use DoD influenza virus vaccine, whole virus 2002 [id number] 16 sanofi pasteur complet ed influenza virus vaccine, whole virus 05/21/03 Given Ambulat ory Pharmac y influenza virus vaccine, whole virus 0 2002 [id number] 16 Sanofi Pasteur (PMC) complet ed influenza virus vaccine, whole virus DoD typhoid vaccine, inactivated 2001 [id number] 101 sanofi pasteur complet ed typhoid vaccine, inactivat ed 06/26/02 Given Ambulat ory Pharmac y tuberculin purified protein derivative 2001 [id number] 96 sanofi pasteur complet ed tuberculi n purified protein derivativ e 06/26/02 Given Ambulat ory Pharmac y typhoid vaccine, parenteral, other than acetone-kille d, dried 0 2001 [id number] 41 Sanofi Pasteur (PMC) complet ed typhoid vaccine, parentera l, other than acetone-k illed, dried DoD influenza virus vaccine, whole virus 2001 [id number] 16 sanofi pasteur complet ed influenza virus vaccine, whole virus 05/09/02 Given Ambulat ory Pharmac y influenza virus vaccine, whole virus 0 2001 [id number] 16 Sanofi Pasteur (PMC) complet ed influenza virus vaccine, whole virus DoD tuberculin purified protein derivative 2000 [id number] 96 sanofi pasteur complet ed tuberculi n purified protein derivativ e 07/03/01 Given Ambulat ory Pharmac y influenza virus vaccine, whole virus 2000 [id number] 16 sanofi pasteur complet ed influenza virus vaccine, whole virus 05/08/01 Given Ambulat ory Pharmac y influenza virus vaccine, whole virus 0 2000 [id number] 16 Sanofi Pasteur (PMC) complet ed influenza virus vaccine, whole virus DoD yellow fever vaccine 1999 [id number] 37 [facility] complet ed yellow fever vaccine 07/13/00 Given Ambulat ory Pharmac y meningococcal polysaccharid e (MPSV4) 1999 [id number] 32 [facility] complet ed meningoco ccal polysacch aride (MPSV4) 07/13/00 Given Ambulat ory Pharmac y meningococcal polysaccharid e vaccine (MPSV4) 0 1999 [id number] 32 [facility] ([facility]) complet ed meningoco ccal polysacch aride vaccine (MPSV4) DoD yellow fever vaccine 0 1999 [id number] 37 [facility] ([facility]) complet ed yellow fever vaccine DoD tuberculin purified protein derivative 1999 [id number] 96 sanofi pasteur complet ed tuberculi n purified protein derivativ e 07/11/00 Given Ambulat ory Pharmac y typhoid vaccine, inactivated 1999 [id number] 101 sanofi pasteur complet ed typhoid vaccine, inactivat ed 07/11/00 Given Ambulat ory Pharmac y influenza virus vaccine, whole virus 1999 [id number] 16 [facility] complet ed influenza virus vaccine, whole virus 07/11/00 Given Ambulat ory Pharmac y influenza virus vaccine, whole virus 0 1999 [id number] 16 [facility] ([facility]) complet ed influenza virus vaccine, whole virus DoD typhoid vaccine, parenteral, other than acetone-kille d, dried 0 1999 R0384 41 Sanofi Pasteur ([facility]) complet ed typhoid vaccine, parentera l, other than acetone-k illed, dried DoD influenza virus vaccine, whole virus 1998 [id number] 16 sanofi pasteur complet ed influenza virus vaccine, whole virus 06/01/99 Given Ambulat ory Pharmac y influenza virus vaccine, whole virus 0 1998 [id number] 16 Sanofi Pasteur ([facility]) complet ed influenza virus vaccine, whole virus [...] Pharmac y measles/mumps /rubella virus vaccine 1994 03 complet ed measles/m umps/rube lla virus vaccine [...] and Prevention's HIV diagnostic algorithm. Refer to [facility] Lab Guide for additional information: [email or web address]/[email or web address] [email or web address]_guide. aspx Testing performed by [employer]. 5600A-U [facility] EPILAB Vital Signs Combined list of inpatient [...] [facility](FOM C-Flight and Ops Medicine) OUTPATIENT [id number] lft shoulde r pain when moved in certain directi on ZAKI ARZOLA 06/30 Released w/o Limitations [employer](F OMC-Fli ght and Ops Medicin e) [employer](Opt ometry Clinic) OUTPATIENT [id number] SHIMON WALKER 01/04 Released w/o Limitations [employer](O ptometr y Clinic) [employer](FOM C-Flight and Ops Medicine) OUTPATIENT [id number] SHIMON Geiger 01/10 Released w/o Limitations [employer](F OMC-Fli ght and Ops Medicin e) [employer](FOM C-Flight and Ops Medicine) OUTPATIENT [id number] Wart eval ZAKI ARZOLA 06/08 Released w/o Limitations [employer](F OMC-Fli ght and Ops Medicin e) [employer](FOM C-Flight and Ops Medicine) OUTPATIENT [id number] NICK Singh 10/28 Released w/o Limitations [employer](F OMC-Fli ght and Ops Medicin e) [employer](FOM C-Flight and Ops Medicine) OUTPATIENT [id number] wart chk.... . RAJ CHILDERS 04/28 Released w/o Limitations [employer](F OMC-Fli ght and Ops Medicin e) [employer](FOM C-Flight and Ops Medicine) OUTPATIENT [id number] PROCEDU RE - REMOVE WART ON RIGHT LEG RAJ CHILDERS 05/09 Released w/o Limitations [employer](F OMC-Fli ght and Ops Medicin e) [employer](FOM C-Flight and Ops Medicine) OUTPATIENT [id number] f/u on wart removal wart came back ZAKI ARZOLA 06/28 Released w/o Limitations [employer](F OMC-Fli ght and Ops Medicin e) [address] [place] [address])([facility] Flight Medicine Tm) TELE CONSULT [id number] Notes Entered by: ARTEMIO ASH 14 Nov 2011 1026 ------- ------- ------- ------- -- Malaria RUDY Thomas 11/[address] [place] [address])([facility]) [address] [place] [address])([facility] Flight Medicine Tm) OUTPATIENT [id number] Notes Entered by: CHRIS WALTERS 19 Apr 2012 1503 ------- ------- ------- ------- -- Need for Prophyl actic Measure SANDRA REYES 04/19 Released w/o Limitations [address] [place] [address])([facility]) [address] [place] [address])([facility] Flight Medicine ) TELE CONSULT [id number] Notes Entered by: ZAKI SPARROW 17 Sep 2015 1434 ------- ------- ------- ------- -- Anti-ma larial medicat ions needed for Flight Reading MAUREENЕЛЕНА MCARTHUR Uri 09/[address] [place] [address])([facility] Flight [facility] Tm) [address] [place] [address])([facility]) TELE CONSULT [id number] Notes Entered by: LILIANA OLSEN 27 Dec 2017 0632 ------- ------- ------- ------- -- DACIA Quinn 12/27 Other Not Elsewhere Classified [address] [place] [address])([facility]) [address] [place] [address])([facility]) OUTPATIENT [id number] 42 YO MALE, NO GLASSES , NO WAIVERS EDIL OWENS Stephania 01/10 Released w/o Limitations [address] [place] [address])([facility]) [address] [place] [address])(Aud iology Procedure s) OUTPATIENT [id number] Notes Entered by: Uri MEDINA 12 Jan 2018 0810 ------- ------- ------- ------- -- Flyer MARILU SRIVASTAVA 01/12 Released w/o Limitations [address] [place] [address])(A udiolog y Procedu res) [address] [place] [address])([facility]) OUTPATIENT [id number] 43 y/o m pt no glasses /no waiver DEEPTHI BLANC 01/28 Released w/o Limitations [address] [place] [address])([facility]) [address] [place] [address])(Aud iology Procedure s) OUTPATIENT [id number] Notes Entered by: Stalin MOSLEY 04 Mar 2019 1044 ------- ------- ------- ------- -- Flyer RICHARD MOSLEY 03/04 Released w/o Limitations [address] [place] [address])(A udiolog y Procedu res) [address] [place] [address])([facility]) OUTPATIENT [id number] 44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 /[id number] ESTEFANI ZAVALA 02/27 Released w/o Limitations [address] [place] [address])([facility]) [address] [place] [address])(Aud iology Procedure s) OUTPATIENT [id number] annual af flyer JAJA THORNTON 03/02 Released w/o Limitations [address] [place] [address])(A udiolog y Procedu res) [facility] Christiano MCGUIRE ([facility] [place]Aud iology Procedure s) OUTPATIENT [id number] 2 Flyer SURAJJAJA 02/19 Released w/o Limitations [facility] Christiano [facility]AC[facility]A udiolog y Procedu res) [address] [place] [address] Christiano DARYAB ([facility] [facility] [place] Flight Medicine Tm) OUTPATIENT [id number] 45m/DEREK CTIVE/P ILOT/NG LASSES/ NWAIVER ESTEFANI ZAVALA 02/19 Released w/o Limitations [facility] Christiano DARYAB ([facility] [place] cott Flight Medicin e Tm) [address] [place] [address] Christiano [facility]ARYAB [facility] ) OUTPATIENT [id number] 0 [facility] [id number] ESTEFANI ZAVALA 03/20 Released w/o Limitations [facility] Christiano [facility]ARYAB [facility] Flight Medicin e Tm) [address] [place] [address] Christiano [facility])(Aud iology Procedure s) OUTPATIENT [id number] Notes Entered by: Uri FONSECA 16 Feb 2022 0949 ------- ------- ------- ------- -- ANNUAL FLYER PEYMAN FONSECA 02/16 Released w/o Limitations [facility] Christiano SHAYLA ([facility] [place]A udiolog y Procedu res) [address] [place] [address] Christiano [facility]ARY[facility] Tm) OUTPATIENT [id number] 9 46/inac tive/pi dahiana/kurtis hector/ASHUTOSH Tsang 03/04 Released w/o Limitations [facility] Christiano [facility]ARYAB [facility] cott Flight Medicin e Tm) [facility] Outpatient Encounter [id number] 10/25 [facility] [id number] th [facility] [id number] CLARIBEL AGUILA 02/22 Discharge Disposition: Home or Self Care 0055H-[id number] [facility] -375 [facility] [id number] EXAM, OCCUPAT IONAL, AVIATIO N, LONG,Es sential (primar y) hyperte nsion NIKKI EORGAN 02/26 Discharge Disposition: Home or Self Care - [facility] -375 [facility] [id number] EXAM, FORMAL OCCUPAT IONAL HEALTH PROGRAM INCLUDI [place] HEARING CONSERV ATION PROGRAM , PERIODI C FOR CONTINU ED 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 Procedure Procedure Type Code Date Perfomer Comments Angelika e Destruction Of Flat Warts By Cryosurgery Up To 14 Lesions [facility] Biopsy Skin [facility] Waiver services; not otherwise specified (NOS) - [facility] PURE TONE AUDIOMTRY THRESHOLD COMPUTER DEV AIR PURE TONE AUDIOMTRY THRESHOLD COMPUTER DEV AIR 0208T 375 [facility] Threshold Audiogram (Pure Tone) Automated Threshold Audiogram (Pure Tone) Automated 0208T 03/04/20 19 RICHARD MOSLEY [facility] Threshold Audiogram (Pure Tone) Threshold Audiogram (Pure Tone) 42159 03/04/20 19 DEEPTHI BLANC [facility] Visual Kraft Test Limited Examination Visual Kraft Test Limited Examination 27230 03/04/20 19 DEEPTHI BLANC [facility] Screening Test Of Visual Acuity, Quantitative, Bilateral Screening Test Of Visual Acuity, Quantitative, Bilateral 69286 03/04/20 19 DEEPTHI BLANC [facility] Threshold Audiogram (Pure Tone) Automated Threshold Audiogram (Pure Tone) Automated 0208T 01/13/20 18 MARILU BALDWIN [facility] Destruction Of Flat Warts By Cryosurgery Up To 14 Lesions 06/28/20 06 ZAKI ARZOLA [facility] Biopsy Skin Biopsy Skin 90790 05/09/20 06 RAJ CHILDERS [facility] Screening Test Of Visual Acuity, Quantitative, Bilateral Screening Test Of Visual Acuity, Quantitative, Bilateral 53042 10/29/19 06 NICK HURT [facility] Audiogram (Screening) Audiogram (Screening) 10916 10/29/19 06 NICK HURT [facility] Destruction Of Flat Warts By Cryosurgery Up To 14 Lesions 06/08/20 05 ZAKI ARZOLA [facility] Audiogram (Screening) Audiogram (Screening) 91004 01/11/20 05 SHIMON CASTRO [facility] Visual Function Screening Visual Function Screening 55536 01/05/20 05 SHIMON WALKER [facility] Threshold Audiogram (Pure Tone) Automated Threshold Audiogram (Pure Tone) Automated 0208T JAJA THORNTON [facility] Screening Test Of Visual Acuity, Quantitative, Bilateral Screening Test Of Visual Acuity, Quantitative, Bilateral 96128 ESTEFANI ZAVALA [facility] Threshold Audiogram (Pure Tone) Threshold Audiogram (Pure Tone) 08553 ESTEFANI ZAVALA [facility] Visual Rkaft Test Limited Examination Visual Kraft Test Limited Examination 32030 ESTEFANI ZAVALA [facility] Electrocardiogram Electrocardiogram 70080 ESTEFANI ZAVALA [facility] DESTRUCTION (EG, LASER SURGERY, ELECTROSURGERY, CRYOSURGERY, CHEMOSURGERY, SURGICAL CURETTEMENT), OF BENIGN LESIONS OTHER THAN SKIN TAGS OR CUTANEOUS VASCULAR PROLIFERATIVE LESIONS; UP TO 14 LESIONS 06/28/20 06 [facility] BIOPSY OF SKIN, SUBCUTANEOUS TISSUE AND/OR MUCOUS MEMBRANE (INCLUDING SIMPLE CLOSURE), UNLESS OTHERWISE LISTED; SINGLE LESION 05/09/20 06 [facility] SCREENING TEST OF VISUAL ACUITY, QUANTITATIVE, BILATERAL 10/29/19 06 [facility] DESTRUCTION (EG, LASER SURGERY, ELECTROSURGERY, CRYOSURGERY, CHEMOSURGERY, SURGICAL CURETTEMENT), OF BENIGN LESIONS OTHER THAN SKIN TAGS OR CUTANEOUS VASCULAR PROLIFERATIVE LESIONS; UP TO 14 LESIONS 06/08/20 05 [facility] SCREENING TEST, PURE TONE, AIR ONLY 01/11/20 05 [facility] VIS FUNCT SCREEN,AUTOMAT/SEMI-A [place] BILAT QUANT DETERM VISUAL ACUITY,OCULAR ALIGN,COLOR VISION,PSEUDOISOCHROM AT PLATES,& FIELD VIS (MAY INC ALL/SOME SCRN DETERM FOR CONTRAST SENSITIV,VIS UND GLARE) 01/05/20 05 [facility] PHYSICAL THERAPY RE-EVALUATION 10/01/19 05 [facility] PHYSICAL THERAPY RE-EVALUATION 08/17/19 05 [facility] PHYSICAL THERAPY EVALUATION 07/21/20 [facility] RANGE OF MOTION MEASUREMENTS AND REPORT (SEPARATE PROCEDURE); EACH EXTREMITY (EXCLUDING HAND) OR EACH TRUNK SECTION (SPINE) 07/01/20 04 [facility] ADMINISTRATION OF PATIENT-FOCUSED HEALTH RISK ASSESSMENT INSTRUMENT (EG, HEALTH HAZARD APPRAISAL) WITH SCORING AND DOCUMENTATION, PER STANDARDIZED INSTRUMENT 03/07/20 [facility] PURE TONE AUDIOMETRY (THRESHOLD), AUTOMATED; AIR ONLY 02/17/20 [facility] WAIVER SERVICES; NOT OTHERWISE SPECIFIED (NOS) 03/22/20 [facility] ELECTROCARDIOGRAM, ROUTINE ECG WITH AT LEAST 12 LEADS; WITH INTERPRETATION AND REPORT 02/23/20 [facility] PURE TONE AUDIOMETRY (THRESHOLD), AUTOMATED; AIR ONLY 02/20/20 [facility] VISUAL FIELD EXAMINATION, UNI OR BILATERAL, WITH MEDICAL DIAGNOSTIC EVAL; LIMITED EXAM (EG, TANGENT SCREEN, AUTOPLOT, ARC PERIMETER, OR SINGLE STIMULUS LEVEL AUTO TEST, EG OCTOPUS 3 OR 7 EQUIVALENT) 03/02/20 [facility] PURE TONE AUDIOMETRY (THRESHOLD), AUTOMATED; AIR ONLY 03/02/20 [facility] PURE TONE AUDIOMETRY (THRESHOLD), AUTOMATED; AIR ONLY 03/04/20 [facility] ADMINISTRATION OF PATIENT-FOCUSED HEALTH RISK ASSESSMENT INSTRUMENT (EG, HEALTH HAZARD APPRAISAL) WITH SCORING AND DOCUMENTATION, PER STANDARDIZED INSTRUMENT 03/04/20 [facility] ADMINISTRATION OF PATIENT-FOCUSED HEALTH RISK ASSESSMENT INSTRUMENT (EG, HEALTH HAZARD APPRAISAL) WITH SCORING AND DOCUMENTATION, PER STANDARDIZED INSTRUMENT 01/13/20 [facility] PURE TONE AUDIOMETRY (THRESHOLD), AUTOMATED; AIR ONLY 01/13/20 [facility] Social History Combined list of available smoking, tobacco, and other social history from Department of Defense and Veterans Affairs facilities. Social History Type Response Date Comment Sourc e Sexual Orientation Ambula tory Pharmacy Gender identity Ambulator y Pharmacy Sex Representation Male (finding) Un known Organization This section is an empty soc ial history section. DoD Assessment and Plan Combined list of future [...] good health. Reviewed PHAQ answers w ith driver service technician?and provided appropriate counseling. N o critical items [...] ncounter Last In-Person PHA date updated in ASIPA No concerns on MHA. See ASIMS AHLTA text. Follow up as needed. P atient showed understanding. Profile: N o MR/DR/FR Retention: M eets Standards ALC: N /A PRAP: N /A Aeromedical Disposition: N o DNIF PHA 2992 signed for annual exam 2. E ssential (primary) hypertension - Repeat BP at goal. Continue with lisinopril. //SIGNED//Leigh Ann Bruce, Lt Col, [employer], MC, FS Extracted from:Title: [facility] check Author: PILI OLVERA Date: 02/27/24 EXAM, FORMAL OCCUPATIONAL HEALTH PROGRAM INCLUDING HEARING CONSERVATION PROGRAM, PERIODIC FOR CONTINUED SURVEILLANCE FOR OCCUPATIONAL WORKPLACE EXPOSURE Extracted from:Title: [facility] [place] Annual flight physical Author: ESTEFANI ZAVALA MD Date: 03/03/23 1. 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 -not [...] clinic as needed. J-coded no DNIF //SIGNED// ESTEFANI ZAVALA, [employer], [employer], Director Of Pharmacy, Aerospace Medicine Family Physician/Flight Surgeon Christiano PIEDRA, [facility] sade Jeni DSN/Comm: [phone] / [phone] 2. 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 E ssential [...] HORTA Date: 03/03/23 1. P resbyopia 01/02/2025 [id number] [facility] Functional Status Combined list of recent functional and cognitive assessments recorded at Department of Defense and Veterans Affairs (VA).VA Functional Dougherty Measurement (FIM) Scale: 1 = Total Assistance (Subject = 0% +), 2 = Maximal Assistance (Subject = 25% +), 3 = Moderate Assistance (Subject = 50% +), 4 = Minimal Assistance (Subject = 75% +), 5 = Supervision, 6 = Modified Dougherty (Device), 7 = Complete Dougherty (Timely, Safely). Assessment Date/Time Source Assessment Type Assessment Skill Assessment Score Assessment Details No data available for this section
== END 2025-01-02 11:20 | disposition home or self-care (01) ==
PROVIDERS: PCP Physician Assistant
DX: H61.893 Other specified disorders of external ear, bilateral (principal); I10 Essential (primary) hypertension
CPT/HCPCS: 99203; G0463